=== PATIENT | female | born 1955 | race Two or more races ===

== ENCOUNTER 2024-09-17 18:24 | Inpatient (IN) | payer MEDICAID, MEDICARE, OTHER ==
[~2024-09-17] VITALS: Ht 154.9 cm; Wt 65.9 kg
[~2024-09-17 18:24] MED LIST: CLON0.1T PO; ESCI10TA PO; METO-289 PO; OLME5TAB22 PO; TERB250T92 PO
[2024-09-17] MEDS: cloNIDine HCL 0.1 MG TAB PO ONE (18:50)
[2024-09-17] MEDS: LORazepam 0.5 MG TAB PO ONE ×2 (18:51→20:36)
--- NOTE | 2024-09-17 18:59 | ED.PDOC ---
History of Present Illness HPI Comments 69 y/o F, with a Hx of cardiomyopathy, HLD, and HTN, presents with c/o HTN, headache, and nausea, today. Patient reports on noticing her blood pressure being elevated in addition to onset of remaining aforementioned symptoms since yesterday. Patient comments on being compliant with her HTN medication, metopr olol and olmesartan, and still having issue managing her blood pressure. She comments on "closing [her] eyes" improving her headache. Patient denies having any chest pain, shortness of breath, dizziness, vision or speech changes, fever, chills, or other associated symptoms or modifiers at this time. Chief Complaint: High Blood Pressure Time Seen by MD: 18:40 Reviewed Notes: Nurses Notes, Medications, Allergies Allergies: Coded Allergies: NO KNOWN ALLERGIES (Unverified , 09/17/24) Information Source: Patient Mode of Arrival: Ambulatory Severity: Moderate Timing: Days Duration: Since onset Prehospital treatment: None Past Medical History PAST MEDICAL HISTORY: High Lipids, HTN Past Medical History (Other): cardiomyopathy, carpal tunnel syndrome Surgical History: NURSERYPERSON History: Denies all NURSERYPERSON Hx Family History Family History: Unknown Social History Smoker: Non-Smoker Alcohol: Denies ETOH Use Drugs: Denies Drug Use Lives In: Home Constitutional: denies: chills, diaphoresis, fatigue, fever, malaise, sweats, weakness, others EENTM: denies: blurred vision, double vision, ear bleeding, ear discharge, ear drainage, ear pain, ear ringing, eye pain, eye redness, hearing loss, mouth pain, mouth swelling, nasal discharge, nose bleeding, nose congestion, nose pain, photophobia, tearing, throat pain, throat swelling, voice changes, others Cardiovascular: denies: chest pain, dizzy spells, diaphoresis, Dyspnea on exertion, edema, irregular heart beat, left arm pain, lightheadedness, palpitations, PND, syncope, others Gastrointestinal: reports: nausea; denies: abdomen distended, abdominal pain, blood streaked bowels, constipated, diarrhea, dysphagia, difficulty swallowing, hematemesis, melena, poor appetite, poor fluid intake, rectal bleeding, rectal pain, vomiting, others Genitourinary: denies: abnormal vagina bleeding, burning, dyspareunia, dysuria, flank pain, frequency, hematuria, incontinence, pain, , vagina discharge, urgency, others Neurological: reports: headache; denies: dizziness, fainting, left sided numbne ss, left sided weakness, numbness, paresthesia, pre-existing deficit, right sided numbness, right sided weakness, seizure, speech problems, tingling, tremors, weakness, others Musculoskeletal: denies: back pain, gout, joint pain, joint swelling, muscle pain, muscle stiffness, neck pain, others Integumetry: denies: bruises, change in color, change in hair/nails, dryness, laceration, lesions, lumps, rash, wounds, others Allergic/Immunocompromised: denies: Difficulty Healing, Frequent Infections, Hives, Itching, others Hematologic/Lymphatic: reports: others (HTN); denies: anemia, blood clots, easy bleeding, easy bruising, swollen glands Endocrine: denies: excessive hunger, excessive sweating, excessive thirst, excessive urination, flushing, intolerance to cold, intolerance to heat, unexplained weight gain, unexplained weight loss, others Physical Exam General Appearance: Moderate Distress, Normal HEENT: Normal ENT Inspection, Pharynx Normal, TMs Normal Neck: Full Range of Motion, Non-Tender, Normal, Normal Inspection Respiratory: Chest Non-Tender, Lungs Clear, No Accessory Muscle Use, No Respiratory Distress, Normal Breath Sounds Cardiovascular: No Edema, No JVD, No Murmur, No Gallop, Normal Peripheral Pulses, Regular Rate/Rhythm Breast Exam: Deferred Gastrointestinal: No Organomegaly, Non Tender, No Pulsatile Mass, Normal Bowel Sounds, Soft Genitalia: Deferred Pelvic: Deferred Rectal: Deferred Extremities: No calf tenderness, Normal capillary refill, Normal inspection, Normal range of motion, Non-tender, No pedal edema Musculoskeletal : Apperance: Normal Neurologic: Alert, manager quality systems II-XII nml as Tested, No Motor Deficits, Normal Affect, Normal Mood, No Sensory Deficits Cerebellar Function: Normal Reflexes: Normal Skin: Dry, Normal Color, Warm Lymphatic: No Adenopathy Was a procedure done? Was a procedure done?: No Differential Dx Considerations may include: HTN emergency, inappropriate medication dosage, tension headache, cluster migraines X-Ray, Labs, Meds, VS Vital Signs Date Time Temp Pulse Resp B/P (MAP) Pulse Ox O2 Delivery O2 Flow Rate FiO2 09/18/24 00:02 57 09/17/24 23:08 64 09/17/24 20:51 101.7 09/17/24 20:50 101.7 09/17/24 20:41 141/65 09/17/24 20:23 75 12 94 Room Air* 0 21 09/17/24 20:21 102.3 75 12 141/65 (90) 94 102.3 09/17/24 18:50 199/85 09/17/24 18:45 87 18 199/85 (123) 92 09/17/24 18:35 98.4 83 18 197/68 (111) 96 Lab Test 09/18/24 00:18 09/17/24 22:50 09/17/24 21:20 Range/Units Troponin I High Sensitivity Pending 196 *H 205 *H </=34 ng/L White Blood Count 5.6 4.4-10.8 10^3/uL Red Blood Count 4.62 4.0-5.20 10^6/uL Hemoglobin 13.5 12.2-16.2 g/dL Hematocrit 39.7 36.0-46.0 % Mean Corpuscular Volume 86.0 80.0-100.0 fL Mean Corpuscular Hemoglobin 29.2 28.0-32.0 pg Mean Corpuscular Hemoglobin Concent 33.9 32.0-36.0 g/dL Red Cell Distribution Width 13.9 11.8-14.3 % Platelet Count 192 140-450 10^3/uL Mean Platelet Volume 8.6 6.9-10.8 fL Neutrophils (%) (Auto) 83.9 H 37.0-80.0 % Lymphocytes (%) (Auto) 7.3 L 10.0-50.0 % Monocytes (%) (Auto) 7.7 0.0-12.0 % Eosinophils (%) (Auto) 0.8 0.0-7.0 % Basophils (%) (Auto) 0.3 0.0-2.0 % Neutrophils # (Auto) 4.7 1.6-8.6 10 ^3/uL Lymphocytes # (Auto) 0.4 0.4-5.4 10 ^3/uL Monocytes # (Auto) 0.4 0-1.3 10 ^3/uL Eosinophils # (Auto) 0 0-0.8 10 ^3/uL Basophils # (Auto) 0 0-0.2 10 ^3/uL Nucleated Red Blood Cells 0.1 % Prothrombin Time 11.6 9.3-11.8 sec Prothrombin Time INR 1.10 0.9-1.15 Activated Partial Thromboplast Time 28.9 24.5-34.5 SEC Sodium Level 136 136-145 mmol/L Potassium Level 4.0 3.5-5.1 mmol/L Chloride Level 103 98-107 mmol/L Carbon Dioxide Level 25 20-31 mmol/L Anion Gap 8 5-15 Blood Urea Nitrogen 10 9-23 mg/dL Creatinine 0.74 0.550-1.02 mg/dL Glomerular Filtration Rate Calc 89 >90 mL/min BUN/Creatinine Ratio 13.5 10.0-20.0 Serum Glucose 143 H 74-106 mg/dL Lactic Acid Level 1.3 0.4-2.0 mmol/L Calcium Level 9.4 8.7-10.4 mg/dL Total Bilirubin 0.7 0.2-1.0 mg/dL Aspartate Amino Transferase (AST) 12 L 13-40 U/L Alanine Aminotransferase (ALT) 13 7-40 U/L Alkaline Phosphatase 131 H 46-116 U/L Total Protein 6.6 5.7-8.2 g/dL Albumin 4.2 3.2-4.8 g/dL Current Medications Medications (Trade) Dose Ordered Sig/Abdi Route Start Time Stop Time Status Last Admin Clonidine HCl (Catapres Tablet) 0.2 mg ONCE ONCE PO 09/17/24 18:45 09/17/24 18:46 DC 09/17/24 18:50 Lorazepam (Ativan Tablet) 2 mg ONCE ONCE PO 09/17/24 18:45 09/17/24 18:57 DC 09/17/24 18:51 Acetaminophen (Tylenol Tablet) 1,000 mg ONCE ONCE PO 09/17/24 20:45 09/17/24 20:46 DC 09/17/24 20:51 Ibuprofen (Motrin Tablet) 800 mg ONCE ONCE PO 09/17/24 20:45 09/17/24 20:46 DC 09/17/24 20:50 Levofloxacin/ Dextrose 100 ml @ 100 mls/hr ONCE ONCE IV 09/17/24 21:15 09/17/24 22:14 DC 09/18/24 00:24 Sodium Chloride 1,450 ml @ 1,450 mls/hr ONCE ONCE IV 09/17/24 21:15 09/17/24 22:14 DC 09/18/24 00:[address] [address] Ph: [phone] DIAGNOSTIC IMAGING Diagnostic Imaging Report : [id number] Signed PATIENT: KIERRA KWOKAACCT: [id number] UNIT: [id number] : 1955 LOC: ER ROOM / BED: / AGE / SEX: 69 / F ADM STATUS: REG ER SERVICE 01 ORDERING PHYSICIAN: CLIFF OREILLY MD PROCEDURE(s): CXRP - CHEST PORTABLE REASON: htn ORDER NUMBER(s): [id number], ACCESSION NUMBER(s): [id number] CHEST RADIOGRAPH Indication: htn Technique: Single frontal view of the chest was obtained Comparison: None FINDINGS: Lines and Tubes: None Lungs: No focal consolidation. Pleura: No effusion. No pneumothorax. Cardiomediastinal contours: Cardiac size within normal limits. Bones: No acute osseous abnormality. IMPRESSION: 1. No acute cardiopulmonary disease. ATED BY: MYRNA ROUSE Jr., DO DICTATED DATE/TIME: 09/17/242202 SIGNED BY: MYRNA ROUSE Jr., SIGNED DATE/TIME: 09/17/242202 CC: The patient has spiked a fever while waiting in the lobby. We started a septic workup. She was given acetaminophen ibuprofen IV fluids and Levaquin. She was also given clonidine for high blood pressure and lorazepam for anxiety. EKG shows no signs of ischemia. First troponin is 205. Second troponin is 196. CBC is normal. CMP is normal. Clonidine was administered for hypotension. Morphine was administered for chest like pain. The patient will be admitted to the hospitalist for further evaluation and care. Time of 1ST Reevaluation: 19:10 Reevaluation 1ST: Unchanged Patient Education/Counseling: Diagnosis, Treatment Family Education/Counseling: No Family Present Departure 1 Departure Time of Disposition: 00:35 Impression: Primary Impression: Hypertension Qualified Codes: I10 - Essential (primary) hypertension Additional Impressions: Anxiety Fever of unknown origin Non-STEMI (non-ST elevated myocardial infarction) Viral syndrome Disposition: 09 ADMITTED INPATIENT Admit to: Tele Condition: Guarded Critical Care Note Critical Care Time?: Yes (35 min-critical care time only) Stability Stability form required: No Heart Score Heart Score: Heart Score Response (Comments) Value History N/A 0 EKG N/A 0 Age N/A 0 Risk Factors N/A 0 Troponin N/A 0 Total 0 I personally scribed for CLIFF OREILLY MD ([email or web address]) on 09/17/24 at 18:59. Electronically submitted by Altaf Ordaz ([email or web address]). CLIFF OREILLY MD Sep 17, 2024 18:59
[2024-09-17 20:23] VITALS: PULSE 75; RESP 12; O2SAT 94
[2024-09-17] MEDS: IBUPROFEN 800 MG TAB PO ONE (20:50)
[2024-09-17] MEDS: ACETAMINOPHEN 500 MG TAB PO ONE (20:51)
[2024-09-17 21:38] LABS: Basophils # (auto) 0 10 ^3/uL (0-0.2); Basophils % (auto) 0.3 % (0.0-2.0); Eosinophils # (auto) 0 10 ^3/uL (0-0.8); Eosinophils % (auto) 0.8 % (0.0-7.0); Hematocrit 39.7 % (36.0-46.0); Hemoglobin 13.5 g/dL (12.2-16.2); Lymphocytes # (auto) 0.4 10 ^3/uL (0.4-5.4); Lymphocytes % (auto) 7.3 % (10.0-50.0); Mean Corpuscular Hemoglobin 29.2 pg (28.0-32.0); Mean Corpuscular Hgb Conc. 33.9 g/dL (32.0-36.0); Monocytes # (auto) 0.4 10 ^3/uL (0-1.3); Monocytes % (auto) 7.7 % (0.0-12.0); Neutrophils # (auto) 4.7 10 ^3/uL (1.6-8.6); Neutrophils % (auto) 83.9 % (37.0-80.0); Nucleated Red Blood Cells % 0.1 %; Platelet Count (auto) 192 10^3/uL (140-450); Red Blood Cells 4.62 10^6/uL (4.0-5.20); Red Cell Distribution Width 13.9 % (11.8-14.3); White Blood Cell 5.6 10^3/uL (4.4-10.8)
[2024-09-17 21:55] LABS: Alanine Aminotransferase 13 U/L (7-40); Alkaline Phosphatase 131 U/L (46-116); Anion Gap 8 (5-15); Aspartate Aminotransferase 12 U/L (13-40); BUN/Creatinine Ratio 13.5 (10.0-20.0); Blood Urea Nitrogen 10 mg/dL (9-23); Calcium 9.4 mg/dL (8.7-10.4); Carbon Dioxide 25 mmol/L (20-31); Chloride 103 mmol/L (98-107); Glucose 143 mg/dL (74-106); Sodium 136 mmol/L (136-145)
[2024-09-17 21:56] LABS: Albumin 4.2 g/dL (3.2-4.8); Bilirubin, Total 0.7 mg/dL (0.2-1.0); INR 1.1 (0.9-1.15); Partial Thromboplastin Time 28.9 SEC (24.5-34.5); Prothrombin Time 11.6 sec (9.3-11.8); Total Protein 6.6 g/dL (5.7-8.2)
--- NOTE | 2024-09-17 22:06 | DVH ---
CHEST RADIOGRAPH Indication: htn Technique: Single frontal view of the chest was obtained Comparison: None FINDINGS: Lines and Tubes: None Lungs: No focal consolidation. Pleura: No effusion. No pneumothorax. Cardiomediastinal contours: Cardiac size within normal limits. Bones: No acute osseous abnormality. IMPRESSION: 1. No acute cardiopulmonary disease.
[2024-09-18] MEDS: SODIUM CHLORIDE 0.9% 1,450 ML IV ONE (00:24)
[2024-09-18] MEDS: levoFLOXacin 500MG 100 ML IV ONE (00:24)
[2024-09-18] MEDS ORDERED: NITROGLYCERIN 0.4 MG SL TAB SL PRN (01:15)
[2024-09-18] MEDS ORDERED: DOCUSATE SOD 100 MG CAP PO PRN (01:15)
[2024-09-18] MEDS ORDERED: MORPHINE SULFATE INJ 2 MG/ml SYRG IV PRN (01:15)
[2024-09-18 02:15] VITALS: PULSE 58; RESP 17; O2SAT 93
--- NOTE | 2024-09-18 02:28 | DVHHPRES ---
History of Present Illness Resident Creating Document: NAMITA BOLTON RESIDENT History of Present Illness Patient is 69 years old female with past medical history of hypertension, hyperlipidemia, cardiomyopathy, carpal tunnel syndrome came with a complaint of elevated blood pressure with a headache. As per patient patient checked her blood pressure last night and found elevated blood pressure 186/92. Patient also reported having headache around 10/10, pressure-like no relieved with the pain medication. Patient also endorsed some shortness of breath, feeling nausea, weakness like she has been fall, and I burning. On further discussion patient reported feeling chest pain early in the morning, 7/10, pressure-like, nonradiating, spontaneous relief and lasted for 1 minute. Initial lab workup revealed elevated troponin I 205> 196> 180, serum glucose 143, alkaline phosphatase 131. EKG revealed no acute ST elevation IN, T-wave inversion. CXR no acute cardiopulmonary disease noted. Home meds metoprolol, atorvastatin, olmesartan Past Medical History Patient is 69 years old female with past medical history of hypertension, hyperlipidemia, cardiomyopathy, carpal tunnel syndrome Past Surgical History , history surgery Past Social History Lives on, denies smoking, alcoholism or drug abuse Review of Systems Review of Systems Allergy- NKDA Patient was seen today at the bedside. Patient reports feeling tired Cardiovascular- deny acute chest pain or shortness of breath or cough or palpitation Respiratory- denies cough or short of breath or wheezing Gastrointestinal- denies any rectal bleeding, nausea or vomiting Musculoskeletal-denies acute joint swelling or tenderness or redness Neurological- denies acute dysarthria, dysphagia, change in vision Psychiatry- denies depression or SI or HI Skin- denies acute rash or purpura Allergies: Coded Allergies: NO KNOWN ALLERGIES (Unverified , 09/17/24) Medications Current Medications Medications Dose Ordered Sig/Abdi Route Start Time Stop Time Status Last Admin Dose Admin Ondansetron HCl 4 mg Q4HP PRN IV 09/18/24 01:15 Docusate Sodium 100 mg BIDPRN PRN PO 09/18/24 01:15 Acetaminophen 650 mg Q6HP PRN PO 09/18/24 01:15 Morphine Sulfate 2 mg Q4HPRN PRN IV 09/18/24 01:15 Nitroglycerin 0.4 mg Q5MINP PRN SL 09/18/24 01:15 Morphine Sulfate 2 mg Q30M PRN IV 09/18/24 01:15 Exam Vital Signs Vital Signs Date Time Temp Pulse Resp B/P (MAP) Pulse Ox O2 Delivery O2 Flow Rate FiO2 09/18/24 00:02 57 09/17/24 20:51 101.7 09/17/24 20:41 141/65 09/17/24 20:23 12 94 Room Air* 0 21 Exam General examination- awake, alert, oriented, conversive HEENT- PEERLA, no acute nasal discharge Cardiovascular- S1-S2 audible, rate and rhythm regular, no murmur Respiratory- CTAB, no wheeze or rhonchi Gastrointestinal-nontender, bowel sound+. Nondistended Musculoskeletal-no acute joint swelling or tenderness or redness# Lower extremity- no leg edema Neurological- cranial nerves intact, no acute dysarthria or dysphagia Psychiatry- denies depression or SI or HI Skin- no acute rash or purpura, Labs/Xrays Labs Test 09/18/24 00:18 09/17/24 21:20 Range/Units Troponin I High Sensitivity 180 *H </=34 ng/L White Blood Count 5.6 4.4-10.8 10^3/uL Red Blood Count 4.62 4.0-5.20 10^6/uL Hemoglobin 13.5 12.2-16.2 g/dL Hematocrit 39.7 36.0-46.0 % Mean Corpuscular Volume 86.0 80.0-100.0 fL Mean Corpuscular Hemoglobin 29.2 28.0-32.0 pg Mean Corpuscular Hemoglobin Concent 33.9 32.0-36.0 g/dL Red Cell Distribution Width 13.9 11.8-14.3 % Platelet Count 192 140-450 10^3/uL Mean Platelet Volume 8.6 6.9-10.8 fL Neutrophils (%) (Auto) 83.9 H 37.0-80.0 % Lymphocytes (%) (Auto) 7.3 L 10.0-50.0 % Monocytes (%) (Auto) 7.7 0.0-12.0 % Eosinophils (%) (Auto) 0.8 0.0-7.0 % Basophils (%) (Auto) 0.3 0.0-2.0 % Neutrophils # (Auto) 4.7 1.6-8.6 10 ^3/uL Lymphocytes # (Auto) 0.4 0.4-5.4 10 ^3/uL Monocytes # (Auto) 0.4 0-1.3 10 ^3/uL Eosinophils # (Auto) 0 0-0.8 10 ^3/uL Basophils # (Auto) 0 0-0.2 10 ^3/uL Nucleated Red Blood Cells 0.1 % Prothrombin Time 11.6 9.3-11.8 sec Prothrombin Time INR 1.10 0.9-1.15 Activated Partial Thromboplast Time 28.9 24.5-34.5 SEC Sodium Level 136 136-145 mmol/L Potassium Level 4.0 3.5-5.1 mmol/L Chloride Level 103 98-107 mmol/L Carbon Dioxide Level 25 20-31 mmol/L Anion Gap 8 5-15 Blood Urea Nitrogen 10 9-23 mg/dL Creatinine 0.74 0.550-1.02 mg/dL Glomerular Filtration Rate Calc 89 >90 mL/min BUN/Creatinine Ratio 13.5 10.0-20.0 Serum Glucose 143 H 74-106 mg/dL Lactic Acid Level 1.3 0.4-2.0 mmol/L Calcium Level 9.4 8.7-10.4 mg/dL Total Bilirubin 0.7 0.2-1.0 mg/dL Aspartate Amino Transferase (AST) 12 L 13-40 U/L Alanine Aminotransferase (ALT) 13 7-40 U/L Alkaline Phosphatase 131 H 46-116 U/L Total Protein 6.6 5.7-8.2 g/dL Albumin 4.2 3.2-4.8 g/dL Assessment/Plan Assessment/Plan # hypertensive urgency -patient has elevated blood pressure at home 186/92 -continue hydralazine 10 mg q.6h p.r.n. -pending echo 2D -nitroglycerin sublingual p.r.n. -monitor blood pressure p.r.n. # NSTEMI likely type2 hypertensive urgency Continue aspirin 81 mg p.o. daily # acute heart failure -BNP 454 -history of cardiomyopathy -continue Lasix as prescribed -pending echo 2D -consult cardiology # weakness/shortness of breaths/by burning likely due to hypertensive urgency -continue current management as prescribed # hyperlipidemia -continue atorvastatin 40 mg q.h.s. # cardiomyopathy -continue aspirin 81 mg daily -continue atorvastatin 40 mg q.h.s. -continue Lasix 20 mg IV b.i.d. -patient has sinus bradycardia -hold metoprolol for now due to sinus bradycardia -pending echo 2D # history of carpal tunnel syndrome -follow up patient Goals of care/advance care planning; FULL CODE; discussed with the patient >15 minutes PUD prophylaxis: Pantoprazole DVT prophylaxis: Lovenox PCP-Dr.Shelton Whyte Plan discussed with Dr. Tinajero, nursing staff, patient Total time spent on patient evaluation, chart review, assessment and plan, discussion discussion >30 minutes Plan discussed with: Patient Plan discussed with: Patient (RN), Other My Orders Orders - NAMITA BOLTON RESIDENT Procedure Category Date Status Time Admit ADMIT 09/18/24 Transmitted 01:09 Code Status CODE 09/18/24 Transmitted 01:09 Ondansetron Hcl PHA 09/18/24 In Process (Zofran) 01:15 Docusate Sodium PHA 09/18/24 In Process Capsule (Colace 01:15 Cardiac DIET 09/18/24 Transmitted Diet-2gna,Lofat,Lochol Breakfast Echo 2d Mode Cardiac US 09/18/24 Logged DOP 01:09 Acetaminophen Tablet PHA 09/18/24 In Process (Tylenol Tablet) 01:15 Morphine Sulfate PHA 09/18/24 In Process Injection 01:15 Nitroglycerin PHA 09/18/24 In Process Sublingual (Ntrostat 01:15 Morphine Sulfate PHA 09/18/24 In Process Injection 01:15 Oxygen By Nasal RT 09/18/24 Transmitted Cannula 01:09 Stat Ekg For Chest BANNER 09/18/24 In Process Pain 01:09 Notify Of Changes BANNER 09/18/24 In Process From Base 01:09 Chapter Relations Administrator For BANNER 09/18/24 In Process 24 Hours 01:09 Emergency Dysrhythmia BANNER 09/18/24 In Process Protocol 01:09 Rhythm Strips Once BANNER 09/18/24 In Process Every Shift 01:09 Drug Screen LAB 09/18/24 Logged 01:32 Complete Blood Count LAB 09/18/24 Logged 04:00 Comprehensive LAB 09/18/24 Logged Metabolic Panel 04:00 Magnesium LAB 09/18/24 Logged 04:00 Date of Service: Sep 18, 2024 Billing Provider: MANUEL TINAJERO MD Common Visit Codes: 32670-GJJXIPK INP/OBS CARE (HIGH) Secondary Visit Codes: 05462-[id number] CARE PLAN 30 MINUTES NAMITA BOLTON Sep 18, 2024 02:28 MANUEL TINAJERO MD Sep 18, 2024 08:54
[2024-09-18] MEDS ORDERED: cloNIDine HCL 0.1 MG TAB PO PRN (02:30)
[2024-09-18] MEDS ORDERED: hydrALAZINE HCL 20 MG/ML VL IV PRN (02:30)
[2024-09-18] MEDS: ATORVASTATIN 20 MG TAB PO ONE (04:00)
[2024-09-18] MEDS: ASPirin 81 mg TAB PO ONE (04:00)
[2024-09-18] MEDS: ENOXAPARIN SOD 40 MG/0.4 ML SYRINGE SC ONE (04:00)
[2024-09-18] MEDS: PANTOPRAZOLE 40 MG TAB PO ONE (04:01)
[2024-09-18] MEDS: ACETAMINOPHEN 325 MG TAB PO PRN (05:26)
[2024-09-18] MEDS: FUROSEMIDE 40 MG/4 ML VIAL IV ONE (05:30)
[2024-09-18] MEDS: IPRATROPIUM BROM 0.5 MG/2.5ML INH SOL NEB ONE (05:35)
[2024-09-18] MEDS: ALBUTEROL SULF 2.5 MG/0.5ML(0.5%) NEB SOLN NEB ONE (05:35)
[2024-09-18] MEDS: PANTOPRAZOLE 40 MG TAB PO SCH (06:00)
--- NOTE | 2024-09-18 06:21 | ECG ---
[facility] Test Date: 2024-09-17 Test Time: 23:08:21 Pat Name: CHERYL CRUZ Department: ED Room: [address] [place] [address] Gender: F Graduate Rn: SALBADOR : 1955 Requested By: CLIFF OREILLY Order Number: [id number] Reading MD: Glenn Black Measurements Intervals [place] Rate: 64 P: 46 WY: 156 QRS: 38 QRSD: 93 T: 191 QT: 419 QTc: 433 Interpretive Statements Sinus rhythm Probable left atrial enlargement LVH with secondary repolarization abnormality Electronically Signed On 09-18-2024 8:28:30 PST by Glenn Black Please click the below link to view image of tracing.
--- NOTE | 2024-09-18 06:21 | ECG ---
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
[2024-09-18 07:34] LABS: Basophils # (auto) 0 10 ^3/uL (0-0.2); Basophils % (auto) 0.5 % (0.0-2.0); Eosinophils # (auto) 0.1 10 ^3/uL (0-0.8); Eosinophils % (auto) 1.5 % (0.0-7.0); Hematocrit 38.7 % (36.0-46.0); Hemoglobin 13.1 g/dL (12.2-16.2); Lymphocytes # (auto) 0.9 10 ^3/uL (0.4-5.4); Lymphocytes % (auto) 24.8 % (10.0-50.0); Mean Corpuscular Hemoglobin 29.2 pg (28.0-32.0); Mean Corpuscular Hgb Conc. 33.7 g/dL (32.0-36.0); Mean Corpuscular Volume 86.6 fL (80.0-100.0); Monocytes # (auto) 0.3 10 ^3/uL (0-1.3); Monocytes % (auto) 7.8 % (0.0-12.0); Neutrophils # (auto) 2.4 10 ^3/uL (1.6-8.6); Neutrophils % (auto) 65.4 % (37.0-80.0); Nucleated Red Blood Cells % 0.1 %; Platelet Count (auto) 164 10^3/uL (140-450); Red Blood Cells 4.47 10^6/uL (4.0-5.20); Red Cell Distribution Width 14.2 % (11.8-14.3); White Blood Cell 3.7 10^3/uL (4.4-10.8)
[2024-09-18 07:43] LABS: Alanine Aminotransferase 11 U/L (7-40); Albumin 4.1 g/dL (3.2-4.8); Alkaline Phosphatase 118 U/L (46-116); Anion Gap 9 (5-15); Aspartate Aminotransferase 12 U/L (13-40); Bilirubin, Total 0.8 mg/dL (0.2-1.0); Blood Urea Nitrogen 10 mg/dL (9-23); Calcium 9.1 mg/dL (8.7-10.4); Carbon Dioxide 26 mmol/L (20-31); Chloride 104 mmol/L (98-107); Cholesterol 285 mg/dL (< 200); Glucose 106 mg/dL (74-106); HDL Cholesterol 51 mg/dL (40-59); LDL Cholesterol 202 mg/dL (< 100); Potassium 3.7 mmol/L (3.5-5.1); Sodium 139 mmol/L (136-145); Triglycerides 179 mg/dL (< 150)
[2024-09-18 07:44] LABS: Total Protein 6.5 g/dL (5.7-8.2)
[2024-09-18 08:06] VITALS: PULSE 69; RESP 18; O2SAT 97
[2024-09-18 08:52] LABS: Urine Bacteria None Seen /hpf (None Seen)
[2024-09-18 09:23] LABS: Amphetamine Screen, Urine Neg (NEGATIVE); Barbiturate Scree,Urine Neg (NEGATIVE); Benzodiazephine Screen, Urine Neg (NEGATIVE); Cocaine Screen, Urine Neg (NEGATIVE); Opiate Scree,Urine Neg (NEGATIVE); Urine Blood Negative /uL (Negative); Urine Clarity Clear (Clear); Urine Color Colorless (Yellow); Urine Protein, UAD Negative (Negative); Urine Specific Gravity 1.006 (1.001-1.035); Urine Urobilinogen Normal (Negative); Urine WBC 1 /hpf (0 - 5); Urine pH 5.5 (5.0-9.0)
[2024-09-18 09:24] LABS: Cannabinoid Screen, Urine Neg (NEGATIVE); Phencyclidine Screen, Urine Neg (NEGATIVE)
[2024-09-18] MEDS: ASPirin 81 mg TAB PO SCH (10:00)
[2024-09-18] MEDS ORDERED: ACETAMINOPHEN 325 MG TAB PO PRN (11:15)
--- NOTE | 2024-09-18 11:29 | DVHSR ---
APPROVED REPORT EXAM: Two-dimensional and M-mode echocardiogram with Doppler and color Doppler. Blood Pressure: 155/65 mmHg INDICATION Hypertensive urgency RISK FACTORS Height: 5'1", Weight: 138 DIMENSIONS LVDd4.4 (3.8-5.7cm)LA (2D)3.8 (1.9-4.0cm)Aortic Root2.7 (2.0-3.7cm) LVDs3.0 (2.5-4.0cm)LA (MM) (1.9-4.0cm)Aortic Cusp Exc1.4 (1.5-2.0cm) EF (%) 60.0 (55-70%)Rt. Atrium3.3 (1.9-4.0cm)Asc. Aorta cm IVSd1.8 (0.7-1.1cm)RV (D) (1.8-2.4cm) PWd1.0 (0.7-1.1cm) Mitral Valve MitralMitral Stenosis E wave1.12m/sMV Mean GR.3mmHg A wave1.19m/sMV Peak GR.6mmHg E/A ratio0.92D MVAcm2 DECEL [id number] 1/2 [id number] IVRTmsDop MVA1.87cm2 Aortic Valve Aortic ValveAortic Stenosis V11.65m/Jo Ann Mean GR.9mmHg V22.02m/Jo Ann Peak GR.16mmHg LVOT Diameter1.7 (1.8-2.4cm)Doppler AVA1.85cm2 Pulmonic Valve V21.42m/s Tricuspid Valve TR Velocity2.65m/s [id number] Other Information Technically limited study due to body habitus. Conclusion Normal left ventricular size and dimension. Normal left ventricular systolic function estimated ejec tion fraction 55%. There is a grade 1 diastolic dysfunction. Normal right ventricular size and dimension. Normal right ventricular systolic function. Slightly i ncreased right ventricular systolic [id number] mm of mercury. Severely dilated left atrium. Moderately dilated right atrium. There is severe posterior mitral annular calcification. There is mild mitral valve stenosis with a p eak gradient of six and mean gradient of 3 mm of mercury and valve area calculated at 1.8 cm2 by pres sure half-time. There is mild to moderate aortic valve sclerosis. Peak gradient of 16 and mean gradient of8 mm of me rcury. There is mild tricuspid valve regurgitation. The pulmonary valve is grossly normal. No pericardial effusion.
--- NOTE | 2024-09-18 11:51 | DVH ---
EXAM: CT HEAD WITHOUT CONTRAST HISTORY: persistent headache nausea and vomiting COMPARISON: None TECHNIQUE: Axial images of the head were obtained and reformatted in coronal and sagittal planes. All CT scans at this medical facility are performed using dose modulation techniques as appropriate t o a performed exam including the following: Automated exposure control was utilized; adjustment of th e MA and/or KV according to patient size; and use of iterative reconstruction technique. CT Dose: CTDI volume is 53.84 mGy. Dose-length product is 953.35 mGy*cm FINDINGS: There is no evidence of acute intracranial hemorrhage, mass, mass effect midline shift. There is no h ydrocephalus or extra-axial fluid collection. Stallworth-white matter differentiation is maintained.. The visualized paranasal sinuses and mastoid air cells are clear. There is a nonspecific 2.2 x 1.4 Hy poechoic nodular structure seen in the right nasal cavity. The calvarium is intact. IMPRESSION: 1. No acute intracranial process. 2. Nonspecific 2.2 by 1.4 cm hypoechoic nodular structure in the right nasal cavity. Direct visualiza tion is recommended. HS:Y
[2024-09-18] MEDS: KETOROLAC TROMETH 30 MG/ML 1ML VIAL IV ONE (14:50)
[2024-09-18] MEDS: LOSARTAN POTASSIUM 25 MG TAB PO ONE (14:50)
--- NOTE | 2024-09-18 14:50 | DVHINCON2 ---
Date Seen: Sep 18, 2024 Referring Physician MD [place] resident Reason for Consultation History of cardiomyopathy, elevated troponin History of Present Illness This is a 69-year-old female patient who presents to the emergency room with chief complaint of headache, epistaxis, and shortness of breath. The patient reports that blood pressure was reaching as high as systolic 180s at home. She came to the emergency room for further evaluation. Blood pressure upon emergency room arrival reached as high as 199/85. She also comes in with a fever reaching as high as 102.3 F. Initial twelve lead electrocardiogram reveals normal sinus rhythm with diffuse ST segment depression and left ventricular hypertrophy. Initial troponin level of 205ng/L with flat trend thereafter. Significant past medical history includes nonobstructive hypertrophic cardiomyopathy, hypertension, dyslipidemia, and carpal tunnel syndrome. The patient reports that she follows up with agricultural systems specialist Dr. Fields in [place]. Past Medical History Past medical history reviewed. No other significant than mentioned above. Past Surgical History Family History Family history reviewed. Social History Denies the use of tobacco, alcohol or illicit drugs. Allergies: Coded Allergies: NO KNOWN ALLERGIES (Unverified , 09/17/24) Home Meds Reported Medications Escitalopram Oxalate (Lexapro) 10 Mg Tab, 1 TAB PO DAILY for 30 Days, #30 09/18/24 Terbinafine Hcl (Terbinafine Hcl) 250 Mg Tab, 1 TAB PO DAILY for 30 Days, #30 09/18/24 Clonidine Hydrochloride (Clonidine Hcl) 0.1 Mg Tab, 1 TAB PO DAILY for 30 Days, #30 09/18/24 Olmesartan Medoxomil (Olmesartan Medoxomil) 5 Mg Tab, 1 TAB PO DAILY for 30 Days, #30 09/18/24 Metoprolol Succinate (Metoprolol Succinate Er) 50 Mg Tab, 1.5 TAB PO DAILY for 30 Days, #45 09/18/24 Home Meds Home medications reviewed. Current Medications Current Medications Medications (Trade) Dose Ordered Sig/Abdi Route PRN Reason Start Time Stop Time Status Last Admin Ondansetron HCl (Zofran) 4 mg Q4HP PRN IV NAUSEA / VOMITING 09/18/24 01:15 Docusate Sodium (Colace Capsule) 100 mg BIDPRN PRN PO FOR CONSTIPATION 09/18/24 01:15 Acetaminophen (Tylenol Tablet) 650 mg Q6HP PRN PO PAIN SCALE 1-3 OR TEMP>100.4 09/18/24 01:15 09/18/24 05:26 Morphine Sulfate 2 mg Q4HPRN PRN IV SEVERE PAIN (7-10 PAIN SCALE) 09/18/24 01:15 Nitroglycerin (Ntrostat Sublingual) 0.4 mg Q5MINP PRN SL FOR CHEST PAIN 09/18/24 01:15 Morphine Sulfate 2 mg Q30M PRN IV FOR CHEST PAIN 09/18/24 01:15 Hydralazine HCl (Apresoline Injection) 10 mg Q6HP PRN IV SBP>150 09/18/24 02:30 Clonidine HCl (Catapres Tablet) 0.1 mg Q6HP PRN PO SBP>160 09/18/24 02:30 09/18/24 06:52 DC Enoxaparin Sodium (Lovenox) 40 mg DAILY@2200 SC 09/18/24 22:00 Aspirin 81 mg DAILY PO 09/18/24 10:00 Pantoprazole Sodium (Protonix Tablet) 40 mg DAILY@0600 PO 09/18/24 06:00 Atorvastatin Calcium (Lipitor) 40 mg HS PO 09/18/24 22:00 Furosemide (Lasix Injection) 20 mg BIDD IV 09/18/24 18:00 Acetaminophen (Tylenol Tablet) 650 mg Q6HP PRN PO MODERATE PAIN (4-6 PAIN SCALE) 09/18/24 11:15 09/18/24 11:28 DC Review of Systems Constitutional: No symptom reported Ears, Nose, & Throat: Headache, epistaxis Eyes: No symptom reported Neurological: No symptoms reported Pulmonary/Respiratory: Shortness of breath Cardiovascular: No symptom reported Gastrointestinal: No symptom reported Genitourinary: No symptom reported Musculoskeletal: No symptom reported Skin: No symptom reported Psychiatric: No symptom reported Endocrine: No symptom reported Hematologic/Lymphatic: No symptom reported Vital Signs Vital Signs Date Time Temp Pulse Resp B/P (MAP) Pulse Ox O2 Delivery O2 Flow Rate FiO2 09/18/24 14:00 66 20 166/78 (107) 90 09/18/24 08:06 Room Air* 0 21 09/17/24 23:15 98.7 98.7 Physical Exam General Appearance: Cooperative. Well-developed. Well-nourished. No acute distress. Pulmonary/Respiratory: Clear, bilateral breaths sounds. Cardiovascular/Chest: Regular rate and rhythm. Peripheral Pulses: 2+ Radial (R). 2+ Radial (L). 2+ Pedal (R). 2+ Pedal (L) Abdominal Exam: Normal bowel sounds. Ankle Exam: Negative ankle edema Lower extremities: Negative lower extremity edema Neuro/Mental Status: A/OX4, coherent. Thoughts/Psych: Normal thought pattern. Appropriate mood and affect. Good judgment and insight. Appearance: No acute distress. Skin Exam: Normal inspection. Normal color. Warm and dry. Labs/Diagnostic Data Labs Test 09/18/24 08:19 09/18/24 07:07 09/17/24 21:20 Range/Units Urine Color Colorless Yellow Urine Clarity Clear Clear Urine pH 5.5 5.0-9.0 Urine Specific Vendor 1.006 1.001-1.035 Urine Protein Negative Negative Urine Ketones Negative Negative Urine Blood Negative Negative /uL Urine Nitrite Negative Negative Urine Bilirubin Negative Negative Urine Urobilinogen Normal Negative mg/dL Urine Leukocyte Esterase Negative Negative /uL Urine RBC 1 0 - 4 /hpf Urine WBC 1 0 - 5 /hpf Urine Squamous Epithelial Cells Few <5 /hpf Urine Bacteria None seen None Seen /hpf Urine Glucose Normal Normal mg/dL Urine Opiates Screen Neg NEGATIVE Urine Fentanyl Screen Neg NEGATIVE Urine Barbiturates Screen Neg NEGATIVE Urine Phencyclidine Screen Neg NEGATIVE Urine Amphetamines Screen Neg NEGATIVE Urine Benzodiazepines Screen Neg NEGATIVE Urine Cocaine Screen Neg NEGATIVE Urine Cannabinoids Screen Neg NEGATIVE White Blood Count 3.7 #L 4.4-10.8 10^3/uL Red Blood Count 4.47 4.0-5.20 10^6/uL Hemoglobin 13.1 12.2-16.2 g/dL Hematocrit 38.7 36.0-46.0 % Mean Corpuscular Volume 86.6 80.0-100.0 fL Mean Corpuscular Hemoglobin 29.2 28.0-32.0 pg Mean Corpuscular Hemoglobin Concent 33.7 32.0-36.0 g/dL Red Cell Distribution Width 14.2 11.8-14.3 % Platelet Count 164 140-450 10^3/uL Mean Platelet Volume 8.4 6.9-10.8 fL Neutrophils (%) (Auto) 65.4 37.0-80.0 % Lymphocytes (%) (Auto) 24.8 10.0-50.0 % Monocytes (%) (Auto) 7.8 0.0-12.0 % Eosinophils (%) (Auto) 1.5 0.0-7.0 % Basophils (%) (Auto) 0.5 0.0-2.0 % Neutrophils # (Auto) 2.4 1.6-8.6 10 ^3/uL Lymphocytes # (Auto) 0.9 0.4-5.4 10 ^3/uL Monocytes # (Auto) 0.3 0-1.3 10 ^3/uL Eosinophils # (Auto) 0.1 0-0.8 10 ^3/uL Basophils # (Auto) 0 0-0.2 10 ^3/uL Nucleated Red Blood Cells 0.1 % Sodium Level 139 136-145 mmol/L Potassium Level 3.7 3.5-5.1 mmol/L Chloride Level 104 98-107 mmol/L Carbon Dioxide Level 26 20-31 mmol/L Anion Gap 9 5-15 Blood Urea Nitrogen 10 9-23 mg/dL Creatinine 0.77 0.550-1.02 mg/dL Glomerular Filtration Rate Calc 84 >90 mL/min BUN/Creatinine Ratio 13.0 10.0-20.0 Serum Glucose 106 74-106 mg/dL Hemoglobin A1c 6.4 H <5.7 % A1C Calcium Level 9.1 8.7-10.4 mg/dL Magnesium Level 2.0 1.6-2.6 mg/dL Total Bilirubin 0.8 0.2-1.0 mg/dL Aspartate Amino Transferase (AST) 12 L 13-40 U/L Alanine Aminotransferase (ALT) 11 7-40 U/L Alkaline Phosphatase 118 H 46-116 U/L Troponin I High Sensitivity 187 *H </=34 ng/L B-Type Natriuretic Peptide 454.66 0-100 pg/mL Total Protein 6.5 5.7-8.2 g/dL Albumin 4.1 3.2-4.8 g/dL Triglycerides Level 179 H < 150 mg/dL Cholesterol Level 285 H < 200 mg/dL LDL Cholesterol 202 H < 100 mg/dL HDL Cholesterol 51 40-59 mg/dL Prothrombin Time 11.6 9.3-11.8 sec Prothrombin Time INR 1.10 0.9-1.15 Activated Partial Thromboplast Time 28.9 24.5-34.5 SEC Lactic Acid Level 1.3 0.4-2.0 mmol/L Assessment NSTEMI type II secondary to hypertensive urgency History of nonobstructive hypertrophic cardiomyopathy (HCM) Severe posterior mitral annular calcification Mild mitral valve stenosis Mild tricuspid valve regurgitation Dyslipidemia Pyrexia from unknown source Prediabetes Plan/Recommendation We will continue with the following plan/recommendations (Dr. Donohue): Transthoracic echocardiogram reveals EF 55% with with significant increase in interventricular septum reaching maximum diameter of 1.87cm. No evidence of left ventricular outflow obstruction (poor image quality). Case reviewed and discussed with . Elevated troponin level likely in the setting of hypertensive urgency.At this time, we will recommend aggressive blood pressure control. Given history of nonobstructive hypertrophic cardiomyopathy, we will recommend medical therapy with beta-donato. Transition to Coreg for better blood pressure control. Continue lipid-lowering agent. Given that the patient was found to have a severe posterior mitral annular calcification, we will recommend for the patient to have blood cultures drawn. In the setting of positive blood cultures, we will recommend for a transesophageal echocardiogram to rule out infective endocarditis Thank you for allowing us to care for this patient. Please call with any questions or concerns. Critical care time spent: 44 minutes This medical document was created using an electronic medical record system with voice recognition software and computerized dictation system. Although this document has been carefully reviewed, there might still be some phonetic and typographical errors. Occasional wrong-word or ``sound-alike substitutions may have occurred due to the inherent limitations of voice recognition software. These areas are purely typographical due to imperfections of the software programs and do not reflect any compromise in the patient's medical care. Pl ease read the chart carefully and recognize, using context, where these substitutions have occurred. Plan discussed with: Patient Date of Service: Sep 18, 2024 Billing Provider: PASCALE DONOHUE MD Cardiology Common Codes: [id number] INP/OBS CARE (High) Cardiology Consultation Codes: [id number] CONSULT <45MIN KWASI FARLEY Sep 18, 2024 14:50
[2024-09-18] MEDS: FUROSEMIDE 20 MG/2 ML VIAL IV SCH (17:48)
[2024-09-18 19:22] VITALS: BP 138/65; PULSE 63; RESP 18; TEMP 98.6; O2SAT 92
--- NOTE | 2024-09-18 19:56 | DVHPNRES ---
Progress Note Date Seen: Sep 18, 2024 Resident Creating Document: CARLOS VINES RESIDENT Medical Necessity Reason Pt with a Central, PICC or Fol: No Medical Necessity Reason Elevated blood pressure and severe headache Subjective Review of Systems This is a 69 years old female with past medical history of hypertension, HOCM, hyperlipidemia, cardiomyopathy, carpal tunnel syndrome who presented to the ED with complaints of elevated blood pressure and global headache. Headache is persistent for over 2 months and rated 10/10. She mentioned that about 6 weeks ago, she noticed recurrent epistaxis but patient did not seek medical advise. Yesterday (09/17/24), again had another headache when she measured her bp it was 186/96. She became very concerned and came to the ED for further management. According to the patient she has been on multiple anti-hypertensive medication, but nothings seems to control her blood pressure. Patient also endorsed some shortness of breath, feeling nausea, weakness like she has been fall, and I burning. On further discussion patient reported feeling chest pain early in the morning, 7/10, pressure-like, nonradiating, spontaneous relief and lasted for 1 minute. Initial lab workup revealed elevated troponin I 205> 196> 180, serum glucose 143, alkaline phosphatase 131. EKG revealed no acute ST elevation VA, T- wave inversion. CXR no acute cardiopulmonary disease noted. Past Medical History: hypertension, hyperlipidemia, cardiomyopathy, carpal tunnel syndrome Past Surgical History:, history surgery Past Social History: denies smoking, alcoholism or drug abuse Constitutional: Denies fever no chills, but feeling of malaise HEENT: headache general persistent, But noear pain, ear discharges, conjunctivitis, nasal discharge throat pain Cardiovascular: Denies chest pain, palpitation, orthopnea, PND, or pedal edema Respiratory: Denies shortness of breath, cough cough, sputum production, hemoptysis, GI: Denies abdominal pain, nausea, vomiting, diarrhea, hematemesis, hematochezia, : Denies frequency, urgency, hematuria, Endocrine: Denies unintentional weight gain or weight loss, feeling of hot flashes, Jozef: Denies easy bruising, bleeding disorders; hsitory of epistaxis Musculoskeletal: Denies joint pains, muscle aches Psych: No evidence of depression, adal, suicidal ideation Review of Systems: CVS:Normal, RESPIRATORY:Normal, GI:Normal, :Normal, MSK:Normal, NEURO:Normal Objective vital signs Vital Sign Date Time Temp Pulse Resp B/P (MAP) Pulse Ox O2 Delivery O2 Flow Rate FiO2 09/18/24 18:03 62 17 149/67 (94) 95 09/18/24 16:00 98.2 98.2 09/18/24 08:06 Room Air* 0 21 Total Intake and Output 09/17/24 09/17/24 09/18/24 15:00 23:00 07:00 Intake Total 1550 ml Balance 1550 ml medications Current Medications Medications Dose Ordered Sig/Abdi Route Start Time Stop Time Status Last Admin Dose Admin Ondansetron HCl 4 mg Q4HP PRN IV 09/18/24 01:15 Docusate Sodium 100 mg BIDPRN PRN PO 09/18/24 01:15 Acetaminophen 650 mg Q6HP PRN PO 09/18/24 01:15 09/18/24 17:48 650 MG Morphine Sulfate 2 mg Q4HPRN PRN IV 09/18/24 01:15 Nitroglycerin 0.4 mg Q5MINP PRN SL 09/18/24 01:15 Morphine Sulfate 2 mg Q30M PRN IV 09/18/24 01:15 Hydralazine HCl 10 mg Q6HP PRN IV 09/18/24 02:30 Enoxaparin Sodium 40 mg DAILY@2200 SC 09/18/24 22:00 Pantoprazole Sodium 40 mg DAILY@0600 PO 09/18/24 06:00 Atorvastatin Calcium 40 mg HS PO 09/18/24 22:00 Furosemide 20 mg BIDD IV 09/18/24 18:00 09/18/24 17:48 20 MG Carvedilol 6.25 mg Q12HR PO 09/18/24 22:00 Examination General examination- Mild distress, elavated bp HEENT: Severe headache, mild redness on the eye. NO acute nasal discharge Chest: S1-S2 audible, rate and rhythm regular, no murmur Lung: CTAB, no wheeze or rhonchi Abdomen: Nondistend, BS+, nontenderness, no organomegaly Musculoskeletal: no acute joint swelling or tenderness Lower extremity: no leg edema Neurological: cranial nerves intact, no acute dysarthria or dysphagia, No neurological abnormalities Psychiatry-- Normal mood and affect Skin- no acute rash or purpura laboratory and microbiology Laboratory Tests 09/18/24 07:07 Test 09/18/24 07:07 Range/Units Serum Glucose 106 74-106 mg/dL Problem List/Assessment/Plan Problem List/Assessment/Plan Hypertensive urgency --> Losartan 25mg --> monitor BP over night. if not improvement, it add Nifedipine --> Hydralazine 10mg prn if SBP is >170 NSTEMI type II likely sencondary to elevated hypertensive --> troponin: 205--> 180--> 187 --> Cardiology consult Persisntent Headache -->CT head: No acute intracranial process, Nonspecific 2.2 by 1.4 cm hypoechoic nodular structure in the right nasal cavity. Direct visualization is recommended. --> Tylenol: no improvement --> Toradol: 15 mg --> Continue to monitor Prediabete --> Hgb A1c: 6.4 --> Encourage lifestyle modification Hypertrophic obstructive cardiomyopathy --> Monitor Care discussed for more than 30 minute Case and plan discussed with Dr. Gates Plan discussed with: Patient My Orders My Orders Orders - CARLOS VINES Procedure Category Date Status Time Head Without Contrast CT 09/18/24 Resulted 11:12 Date of Service: Sep 18, 2024 Billing Provider: JENNYFER MEJIA MD Common Visit Codes: [id number] INP/OBS CARE(HIGH) CARLOS VINES Sep 18, 2024 19:56 JENNYFER MEJIA MD Sep 24, 2024 00:14
[2024-09-18 20:00] VITALS: PULSE 62; RESP 18; O2SAT 98
[2024-09-18] MEDS: MORPHINE SULFATE INJ 2 MG/ml SYRG IV PRN (20:24)
[2024-09-18 21:00] VITALS: BP 144/70; PULSE 64; RESP 19; TEMP 98.4; O2SAT 92
[2024-09-18 22:29] VITALS: BP 138/65; PULSE 63; RESP 18; TEMP 98.6; O2SAT 92
[2024-09-18] MEDS ORDERED: ATOR-47 PO (22:59)
[2024-09-18] MEDS: ATORVASTATIN 20 MG TAB PO SCH (23:14)
[2024-09-18] MEDS: ENOXAPARIN SOD 40 MG/0.4 ML SYRINGE SC SCH (23:15)
[2024-09-18] MEDS: CARVEDILOL 3.125 MG TAB PO SCH (23:15)
[2024-09-19] VITALS (13 sets, daily range): BP systolic 113–164; BP diastolic 58–82; PULSE 63–80; RESP 17–20; TEMP 98–101.4; O2SAT 91–98
[2024-09-19] MEDS: ONDANSETRON HCL 4 MG/2 ML VIAL IV PRN (06:52)
[2024-09-19 07:34] LABS: Alanine Aminotransferase 17 U/L (7-40); Albumin 4.2 g/dL (3.2-4.8); Alkaline Phosphatase 110 U/L (46-116); Anion Gap 10 (5-15); Aspartate Aminotransferase 30 U/L (13-40); BUN/Creatinine Ratio 14.5 (10.0-20.0); Bilirubin, Total 0.6 mg/dL (0.2-1.0); Blood Urea Nitrogen 11 mg/dL (9-23); Carbon Dioxide 27 mmol/L (20-31); Chloride 100 mmol/L (98-107); Glucose 115 mg/dL (74-106); Potassium 3.4 mmol/L (3.5-5.1); Sodium 137 mmol/L (136-145); Total Protein 6.5 g/dL (5.7-8.2)
[2024-09-19 07:38] LABS: Free T3 2.4 pg/mL (2.3-4.2); Free T4 (Free Thyroxine) 1.26 ng/dL (0.89-1.76)
[2024-09-19 07:39] LABS: Basophils # (auto) 0 10 ^3/uL (0-0.2); Basophils % (auto) 0.4 % (0.0-2.0); Eosinophils # (auto) 0 10 ^3/uL (0-0.8); Eosinophils % (auto) 0.5 % (0.0-7.0); Hemoglobin 13.2 g/dL (12.2-16.2); Lymphocytes % (auto) 31.6 % (10.0-50.0); Mean Corpuscular Hemoglobin 29.1 pg (28.0-32.0); Mean Corpuscular Hgb Conc. 33.8 g/dL (32.0-36.0); Monocytes # (auto) 0.5 10 ^3/uL (0-1.3); Neutrophils # (auto) 1.7 10 ^3/uL (1.6-8.6); Neutrophils % (auto) 52.5 % (37.0-80.0); Nucleated Red Blood Cells % 0.4 %; Platelet Count (auto) 167 10^3/uL (140-450); Red Blood Cells 4.53 10^6/uL (4.0-5.20); Red Cell Distribution Width 14.1 % (11.8-14.3); White Blood Cell 3.3 10^3/uL (4.4-10.8)
--- NOTE | 2024-09-19 09:57 | DVHPN2 ---
Consult Progress Note Date Seen: Sep 19, 2024 Subjective Review of Systems: CVS:Normal, RESPIRATORY:Normal, NEURO:Normal Other Systems: Denies any further symptoms Objective vital signs Vital Sign Date Time Temp Pulse Resp B/P (MAP) Pulse Ox O2 Delivery O2 Flow Rate FiO2 09/19/24 08:00 63 18 94 Nasal Cannula* 2 28 09/19/24 07:14 98.6 150/82 (104) 98.6 Total Intake and Output 09/18/24 09/18/24 09/19/24 15:00 23:00 07:00 Intake Total 480 ml Output Total 800 ml Balance -800 ml 480 ml medications Current Medications Medications Dose Ordered Sig/Abdi Route Start Time Stop Time Status Last Admin Dose Admin Ondansetron HCl 4 mg Q4HP PRN IV 09/18/24 01:15 09/19/24 06:52 4 MG Docusate Sodium 100 mg BIDPRN PRN PO 09/18/24 01:15 Acetaminophen 650 mg Q6HP PRN PO 09/18/24 01:15 09/18/24 17:48 650 MG Morphine Sulfate 2 mg Q4HPRN PRN IV 09/18/24 01:15 09/18/24 20:24 2 MG Nitroglycerin 0.4 mg Q5MINP PRN SL 09/18/24 01:15 Morphine Sulfate 2 mg Q30M PRN IV 09/18/24 01:15 Enoxaparin Sodium 40 mg DAILY@2200 SC 09/18/24 22:00 09/18/24 23:15 40 MG Pantoprazole Sodium 40 mg DAILY@0600 PO 09/18/24 06:00 09/19/24 06:36 40 MG Atorvastatin Calcium 40 mg HS PO 09/18/24 22:00 09/18/24 23:14 40 MG Furosemide 20 mg BIDD IV 09/18/24 18:00 09/18/24 17:48 20 MG Hydralazine HCl 10 mg Q6HP PRN IV 09/18/24 19:30 Losartan Potassium 50 mg DAILY PO 09/19/24 10:00 Carvedilol 12.5 mg Q12HR PO 09/19/24 10:00 Examination: LUNGS:Normal, CVS:Normal, NEURO:Normal laboratory and microbiology Laboratory Tests 09/19/24 04:55 Test 09/19/24 04:55 Range/Units Serum Glucose 115 H 74-106 mg/dL Problem List/Assessment/Plan Problem List/Assessment/Plan NSTEMI type II secondary to hypertensive urgency Pyrexia secondary to hypertension History of nonobstructive hypertrophic cardiomyopathy (HCM) Severe posterior mitral annular calcification Mild mitral valve stenosis Mild tricuspid valve regurgitation Dyslipidemia Prediabetes Plan/Recommendation (Dr. Donohue) Transthoracic echocardiogram reveals EF 55% with with significant increase in interventricular septum reaching maximum diameter of 1.87cm. No evidence of left ventricular outflow obstruction (poor image quality). Elevated troponin level likely in the setting of hypertensive urgency. Continue aggressive blood pressure control with ARB and Coreg, uptitrate as necessary. Continue lipid- lowering agent. The patient with a severe posterior mitral annular calcification underwent blood cultures with preliminary results negative. No need for a transesophageal echocardiogram at this time. Counseled on low Na diet and BP log to take to her next appointment with primary process engineering technician on 10/2024. There is no further cardiac work-up indicated at this time. Kindly call with any questions or concerns. Thank you for allowing us to care for this patient. This medical document was created using an electronic medical record system with voice recognition software and computerized dictation system. Although this document has been carefully reviewed, there might still be some phonetic and typographical errors. Occasional wrong-word or ``sound-alike substitutions may have occurred due to the inherent limitations of voice recognition software. These areas are purely typographical due to imperfections of the software programs and do not reflect any compromise in the patient's medical care. Please read the chart carefully and recognize, using context, where these substitutions have occurred. Plan discussed with: Patient, Other Date of Service: Sep 19, 2024 Billing Provider: PASCALE DONOHUE MD Cardiology Common Codes: [id number] INP/OBS CARE(Mod) KINZA GARCIA [facility] Sep 19, 2024 09:57
[2024-09-19] MEDS: POTASSIUM CHL 20 Meq TABLET PO ONE ×2 (10:00→10:14)
[2024-09-19] MEDS: CARVEDILOL 12.5 MG TAB PO SCH (10:14)
[2024-09-19] MEDS: LOSARTAN POTASSIUM 50 MG TAB PO SCH (10:15)
[2024-09-19 11:10] LABS: Urine Bacteria None Seen /hpf (None Seen)
--- NOTE | 2024-09-19 11:28 | DVHPNRES ---
Progress Note Date Seen: Sep 19, 2024 Resident Creating Document: CARLOS VINES RESIDENT Has the PT tested + for MRSA If YES, has PT been informed?: No Medical Necessity Reason Pt with a Central, PICC or Fol: No Subjective Review of Systems This is a 69 years old female with past medical history of hypertension, HCM, hyperlipidemia, cardiomyopathy, carpal tunnel syndrome who presented to the ED with complaints of elevated blood pressure and global headache. Patient seen and examined today. She has no new complaints. The headache in better, however, her blood pressure is still elevated, bp:164/73. She was seen by cardiology yesterday. Echo revealed "significant increase in the interventricular septum reaching maximum diameter of 1.8 cm. No evidence of left ventricular outflow obstruction was clear however the images provided were limited to rule out dynamic left ventricular outflow tract fraction. Normal left ventricular systolic function estimated ejection fraction 55%". patient was started on Carvediol 6.25mg. Constitutional: Denies fever no chills, but feeling of malaise HEENT: headache improved, But noear pain, ear discharges, conjunctivitis, nasal discharge throat pain Cardiovascular: Denies chest pain, palpitation, orthopnea, PND, or pedal edema Respiratory: Denies shortness of breath, cough cough, sputum production, hemoptysis, GI: Denies abdominal pain, nausea, vomiting, diarrhea, hematemesis, hematochezia, : Denies frequency, urgency, hematuria, Endocrine: Denies unintentional weight gain or weight loss, feeling of hot flashes, Jozef: Denies easy bruising, bleeding disorders; hsitory of epistaxis Musculoskeletal: Denies joint pains, muscle aches Psych: No evidence of depression, adal, suicidal ideation Objective vital signs Vital Sign Date Time Temp Pulse Resp B/P (MAP) Pulse Ox O2 Delivery O2 Flow Rate FiO2 09/19/24 10:15 139/74 09/19/24 10:14 67 09/19/24 09:00 100.5 18 96 100.5 09/19/24 08:00 Nasal Cannula* 2 28 Total Intake and Output 09/18/24 09/18/24 09/19/24 15:00 23:00 07:00 Intake Total 480 ml Output Total 800 ml Balance -800 ml 480 ml medications Current Medications Medications Dose Ordered Sig/Abdi Route Start Time Stop Time Status Last Admin Dose Admin Ondansetron HCl 4 mg Q4HP PRN IV 09/18/24 01:15 09/19/24 06:52 4 MG Docusate Sodium 100 mg BIDPRN PRN PO 09/18/24 01:15 Acetaminophen 650 mg Q6HP PRN PO 09/18/24 01:15 09/18/24 17:48 650 MG Morphine Sulfate 2 mg Q4HPRN PRN IV 09/18/24 01:15 09/18/24 20:24 2 MG Nitroglycerin 0.4 mg Q5MINP PRN SL 09/18/24 01:15 Morphine Sulfate 2 mg Q30M PRN IV 09/18/24 01:15 Enoxaparin Sodium 40 mg DAILY@2200 SC 09/18/24 22:00 09/18/24 23:15 40 MG Pantoprazole Sodium 40 mg DAILY@0600 PO 09/18/24 06:00 09/19/24 06:36 40 MG Atorvastatin Calcium 40 mg HS PO 09/18/24 22:00 09/18/24 23:14 40 MG Hydralazine HCl 10 mg Q6HP PRN IV 09/18/24 19:30 Losartan Potassium 50 mg DAILY PO 09/19/24 10:00 09/19/24 10:15 50 MG Carvedilol 12.5 mg Q12HR PO 09/19/24 10:00 09/19/24 10:14 12.5 MG Ceftriaxone Sodium 50 ml @ 100 mls/hr DAILY@09 IV 09/20/24 09:00 Sodium Chloride 1,000 ml @ 75 mls/hr [id number] IV 09/19/24 10:00 Azithromycin 250 ml @ 125 mls/hr DAILY IV 09/20/24 10:00 UNV Examination General examination- Mild distress, elavated bp HEENT: headache-improved, mild redness on the eye. NO acute nasal discharge Chest: S1-S2 audible, rate and rhythm regular, no murmur Lung: CTAB, no wheeze or rhonchi Abdomen: Nondistend, BS+, nontenderness, no organomegaly Musculoskeletal: no acute joint swelling or tenderness Lower extremity: no leg edema Neurological: cranial nerves intact, no acute dysarthria or dysphagia, No neurological abnormalities Psychiatry-- Normal mood and affect Skin- no acute rash or purpura laboratory and microbiology Laboratory Tests 09/19/24 04:55 Test 09/19/24 04:55 Range/Units Serum Glucose 115 H 74-106 mg/dL Microbiology Date/Time Source Procedure Growth Status 09/17/24 21:11 Blood Blood Culture - Preliminary NO GROWTH AFTER 24 HOURS OF INCUBATION. Resulted Problem List/Assessment/Plan Problem List/Assessment/Plan Hypertensive urgency --> Losartan 50 mg --> Carvediol: 12.5mg daily --> monitor BP over night. if no improvement, will add Nifedipine --> Hydralazine 10mg prn if SBP is >170 NSTEMI type II likely sencondary to elevated hypertensive --> troponin: 205--> 180--> 187 --> Cardiology on board Atypical pneumonia --> Fever:temp: 100.5, 100 --> No evidence of infection --> Blood culture negative Headache-->. improved -->CT head: No acute intracranial process, Nonspecific 2.2 by 1.4 cm hypoechoic nodular structure in the right nasal cavity. Direct visualization is recommended. --> Tylenol: if no improvement --> Ibuprofen ( Consider this today) --> Toradol: 15 mg once. --> Continue to monitor Prediabete --> Hgb A1c: 6.4 --> Encourage lifestyle modification Hypertrophic cardiomyopathy --> Monitor Care discussed for more than 30 minute Case and plan discussed with Dr. Gates Plan discussed with: Patient My Orders My Orders Orders - CARLOS VINES Procedure Category Date Status Time Hydralazine Injection PHA 09/18/24 In Process (Apresoline Inject 19:30 Azithromycin 500mg/ PHA 09/20/24 Logged 250ml (Zithromax 50 10:00 Azithromycin 500mg/ PHA 09/19/24 Logged 250ml (Zithromax 50 11:30 Date of Service: Sep 19, 2024 Billing Provider: JENNYFER MEJIA MD Common Visit Codes: [id number] INP/OBS CARE(HIGH) CARLOS VINES Sep 19, 2024 11:28 JENNYFER MEJIA MD Sep 24, 2024 00:08
[2024-09-19 11:29] LABS: Urine Blood Negative /uL (Negative); Urine Clarity Clear (Clear); Urine Color Light-Yellow (Yellow); Urine Protein, UAD TRACE (Negative); Urine Specific Gravity 1.025 (1.001-1.035); Urine Urobilinogen Normal (Negative); Urine WBC 2 /hpf (0 - 5)
[2024-09-19] MEDS: cefTRIAXone 1GM/50ML D5W 50 ML IV ONE (11:33)
[2024-09-19] MEDS: SODIUM CHLORIDE 0.9% 1,000 ML IV SCH (11:33)
[2024-09-19 12:45] LABS: COVID19 ANTIGEN SOFIA FIA NEGATIVE (NEGATIVE); Rapid Influenza A Negative (Negative); Rapid Influenza B Negative (Negative)
[2024-09-19] MEDS: AZITHROMYCIN 500MG/ 250ML 250 ML IV ONE (14:15)
[2024-09-19] MEDS: hydrALAZINE HCL 20 MG/ML VL IV PRN (16:18)
--- NOTE | 2024-09-19 18:15 | DVH ---
EXAMINATION: PA and lateral chest radiographs CLINICAL HISTORY: sob COMPARISON: None FINDINGS: Lead wires overlie the thorax. Streaky opacities in the left lower lung field. Right lung is relatively clear. Aortic calcifications . The cardiomediastinal silhouette otherwise appears within normal limits given technique. No definit e pleural effusion or pneumothorax. IMPRESSION: Atelectasis/scarring versus developing infiltrates in the left lower lung field. Please correlate for infection.
[2024-09-20] VITALS (18 sets, daily range): BP systolic 127–165; BP diastolic 45–89; PULSE 60–102; RESP 17–19; TEMP 97.4–98.9; O2SAT 92–100
[2024-09-20] MEDS: ALBUTEROL SULF 2.5 MG/0.5ML(0.5%) NEB SOLN NEB PRN (00:22)
[2024-09-20] MEDS: IPRATROPIUM BROM 0.5 MG/2.5ML INH SOL NEB PRN (00:22)
[2024-09-20 07:10] LABS: Basophils # (auto) 0 10 ^3/uL (0-0.2); Basophils % (auto) 0.3 % (0.0-2.0); Eosinophils # (auto) 0 10 ^3/uL (0-0.8); Eosinophils % (auto) 0.8 % (0.0-7.0); Hematocrit 37.8 % (36.0-46.0); Hemoglobin 12.7 g/dL (12.2-16.2); Lymphocytes # (auto) 1.4 10 ^3/uL (0.4-5.4); Lymphocytes % (auto) 47.3 % (10.0-50.0); Mean Corpuscular Hgb Conc. 33.7 g/dL (32.0-36.0); Mean Corpuscular Volume 85.9 fL (80.0-100.0); Monocytes # (auto) 0.5 10 ^3/uL (0-1.3); Monocytes % (auto) 17.6 % (0.0-12.0); Nucleated Red Blood Cells % 0.3 %; Platelet Count (auto) 159 10^3/uL (140-450); Red Cell Distribution Width 13.8 % (11.8-14.3)
[2024-09-20 07:20] LABS: Anion Gap 9 (5-15); Carbon Dioxide 26 mmol/L (20-31); Chloride 103 mmol/L (98-107); Potassium 3.6 mmol/L (3.5-5.1); Sodium 138 mmol/L (136-145)
[2024-09-20 07:26] LABS: BUN/Creatinine Ratio 9.7 (10.0-20.0); Glucose 106 mg/dL (74-106)
[2024-09-20 07:29] LABS: Blood Urea Nitrogen 7 mg/dL (9-23)
[2024-09-20] MEDS: cefTRIAXone 1GM/50ML D5W 50 ML IV SCH (09:49)
[2024-09-20] MEDS: AZITHROMYCIN 500MG/ 250ML 250 ML IV SCH (09:49)
[2024-09-20] MEDS: methylPREDNISolone SOD SUCC 40 MG/ML VL IV ONE (13:30)
[2024-09-20] MEDS: IPRATROPIUM BROM 0.5 MG/2.5ML INH SOL NEB SCH (14:56)
[2024-09-20] MEDS: ALBUTEROL SULF 2.5 MG/0.5ML(0.5%) NEB SOLN NEB SCH (14:56)
[2024-09-20] MEDS: LOSARTAN POTASSIUM 50 MG TAB PO ONE (17:45)
--- NOTE | 2024-09-20 19:54 | DVHPNRES ---
Progress Note Date Seen: Sep 20, 2024 Resident Creating Document: CARLOS VINES RESIDENT Has the PT tested + for MRSA If YES, has PT been informed?: No Medical Necessity Reason Pt with a Central, PICC or Fol: No Medical Necessity Reason New wheezing and congestion X-ray: atelectasis vs new infiltration Subjective Review of Systems This 69 years old female with past medical history of hypertension, HCM, hyperlipidemia, cardiomyopathy, carpal tunnel syndrome who presented to the ED with complaints of elevated blood pressure and global headache. She is currently on Carvediol 12.5mg BID and Losartan 50mg. Blood pressure is getting better. Headache is improved and blood pressure is getting better. However, today, on examination, patient is wheezing with her increased temperature. D-dimer is negative. Constitutional: Denies fever no chills, but feeling of malaise HEENT: headache improved, But noear pain, ear discharges, conjunctivitis, nasal discharge throat pain Cardiovascular: Denies chest pain, palpitation, orthopnea, PND, or pedal edema Respiratory: MILD shortness of breath, drug cough, sputum production, hemoptysis, GI: Denies abdominal pain, nausea, vomiting, diarrhea, hematemesis, hematochezia, : Denies frequency, urgency, hematuria, Endocrine: Denies unintentional weight gain or weight loss, feeling of hot flashes, Jozef: Denies easy bruising, bleeding disorders; history of epistaxis Musculoskeletal: Denies joint pains, muscle aches Psych: No evidence of depression, adal, suicidal ideation Objective vital signs Vital Sign Date Time Temp Pulse Resp B/P (MAP) Pulse Ox O2 Delivery O2 Flow Rate FiO2 09/20/24 19:18 86 18 99 09/20/24 19:11 Room Air* 0 21 09/20/24 18:51 165/89 (114) 09/20/24 16:42 98.0 98.0 Total Intake and Output 09/19/24 09/19/24 09/20/24 15:00 23:00 07:00 Intake Total 50 ml 1300 ml 440 ml Balance 50 ml 1300 ml 440 ml medications Current Medications Medications Dose Ordered Sig/Abdi Route Start Time Stop Time Status Last Admin Dose Admin Ondansetron HCl 4 mg Q4HP PRN IV 09/18/24 01:15 09/20/24 12:32 4 MG Docusate Sodium 100 mg BIDPRN PRN PO 09/18/24 01:15 Acetaminophen 650 mg Q6HP PRN PO 09/18/24 01:15 09/20/24 08:41 650 MG Morphine Sulfate 2 mg Q4HPRN PRN IV 09/18/24 01:15 09/18/24 20:24 2 MG Nitroglycerin 0.4 mg Q5MINP PRN SL 09/18/24 01:15 Morphine Sulfate 2 mg Q30M PRN IV 09/18/24 01:15 Enoxaparin Sodium 40 mg DAILY@2200 SC 09/18/24 22:00 09/18/24 23:15 40 MG Pantoprazole Sodium 40 mg DAILY@0600 PO 09/18/24 06:00 09/19/24 06:36 40 MG Atorvastatin Calcium 40 mg HS PO 09/18/24 22:00 09/19/24 22:05 40 MG Hydralazine HCl 10 mg Q6HP PRN IV 09/18/24 19:30 09/19/24 16:18 10 MG Carvedilol 12.5 mg Q12HR PO 09/19/24 10:00 09/20/24 09:50 12.5 MG Ceftriaxone Sodium 50 ml @ 100 mls/hr DAILY@09 IV 09/20/24 09:00 09/20/24 09:49 100 MLS/HR Azithromycin 250 ml @ 125 mls/hr DAILY IV 09/20/24 10:00 09/20/24 09:49 125 MLS/HR Albuterol 2.5 mg Q4HWA [facility] 09/20/24 14:00 09/20/24 19:14 2.5 MG Ipratropium [place] 0.5 mg Q4HWA [facility] 09/20/24 14:00 09/20/24 19:15 0.5 MG Methylprednisolone Sodium Succinate 40 mg BID IV 09/20/24 22:00 Losartan Potassium 50 mg DAILY PO 09/21/24 10:00 Examination General examination- Mild distress, elavated bp HEENT: headache-improved, mild redness on the eye. NO acute nasal discharge Chest: S1-S2 audible, rate and rhythm regular, no murmur Lung: wheeze bilateral ( NEW) Abdomen: Nondistend, BS+, nontenderness, no organomegaly Musculoskeletal: no acute joint swelling or tenderness Lower extremity: No leg edema Neurological: cranial nerves intact, no acute dysarthria or dysphagia, No neurological abnormalities Psychiatry-- Normal mood and affect Skin- no acute rash or purpura laboratory and microbiology Laboratory Tests 09/20/24 06:13 Test 09/20/24 06:13 Range/Units Serum Glucose 106 74-106 mg/dL Microbiology Date/Time Source Procedure Growth Status 09/19/24 10:45 Voided Urine Urine Culture - Preliminary Resulted 09/19/24 10:15 Blood Blood Culture - Preliminary NO GROWTH AFTER 24 HOURS OF INCUBATION. Resulted Labs and/or images reviewed: Labs reviewed by me, Image(s) reviewed by me Problem List/Assessment/Plan Problem List/Assessment/Plan Hypertensive urgency--> improving --> Losartan 50 mg DAILY --> Carvedilol: 12.5mg daily BID --> monitor BP over night. if no improvement, will add Nifedipine --> Hydralazine 10mg prn if SBP is >150 NSTEMI type II likely secondary to elevated blood pressure --> troponin: 205--> 180--> 187 --> Cardiology on board Atypical pneumonia --> Fever:temp: 100.5, 100--> 98.0 --> Continue antibiotic --> Methylprednisolone add --> Breathing treatment Q4HR ( Albuterol and ipratropium) --> Blood culture negative Headache--> improved -->CT head: No acute intracranial process, Nonspecific 2.2 by 1.4 cm hypoechoic nodular structure in the right nasal cavity. Direct visualization is recommended. --> Tylenol: if no improvement --> Ibuprofen ( Consider this if not responding to Tylenol) --> Toradol: 15 mg once. --> Continue to monitor Prediabetes --> Hgb A1c: 6.4 --> Encourage lifestyle modification Hypertrophic cardiomyopathy --> Monitor --> Continue beta donato Goals of care discussed for 20 minutes; full code Case and plan discussed with Plan discussed with: Patient, Other (Nurse) Addendum Addendum Addendum I was physically present for the karimi portions of the service provided to patient by THE RESIDENT. I have reviewed the documentation, discussed the case with resident and agree with the resident's documentation except as noted. Also the patient's clinical case was discussed with the patient's nurse. This medical document was created using an electronic medical record system with computerized dictation system. Although this document has been carefully reviewed, there might still be some phonetic and typographical errors. These areas are purely typographical due to imperfections of the software programs, and do not reflect any compromise in the patient's medical care. Late signature. Date of Service: Sep 20, 2024 Billing Provider: THONY BARBA MD Common Visit Codes: 41949-[id number] INP/OBS CARE(HIGH) Secondary Visit Codes: 76003-KZTLOXHL CARE PLAN 30 MINUTES (20 minutes) CARLOS VINES RESIDENT Sep 20, 2024 19:54 THONY BARBA MD Sep 22, 2024 14:34
[2024-09-20] MEDS: methylPREDNISolone SOD SUCC 40 MG/ML VL IV SCH (21:43)
[2024-09-21] VITALS (10 sets, daily range): BP systolic 125–160; BP diastolic 77–87; PULSE 60–90; RESP 16–19; TEMP 97.8–98.5; O2SAT 91–99
[2024-09-21] MEDS: LOSARTAN POTASSIUM 50 MG TAB PO SCH (08:56)
[2024-09-21] MEDS ORDERED: LOSA-534 PO (14:12)
[2024-09-21] MEDS ORDERED: ACET-1882 PO (14:12)
[2024-09-21] MEDS ORDERED: PANT40T PO (14:12)
[2024-09-21] MEDS ORDERED: DOCU-265 PO (14:12)
[2024-09-21] MEDS ORDERED: PRED20TA2 PO (14:12)
[2024-09-21] MEDS ORDERED: LEVO750T40 PO (14:12)
[2024-09-21] MEDS ORDERED: ATOR20TA50 PO (14:12)
[2024-09-21] MEDS ORDERED: CARV-216 PO (14:12)
--- NOTE | 2024-09-21 23:51 | DVHDSRES ---
Discharge Summary Date of Admission Resident Creating Document: CARLOS VINES RESIDENT Sep 18, 2024 at 01:11 Date of Discharge: Sep 21, 2024 Admitting Diagnosis Elevated blood pressure with generalized arthritic Labs/Diagnostic Data: Laboratory Results Test 09/20/24 15:34 09/20/24 06:13 09/19/24 11:45 09/19/24 10:45 D-Dimer, Quantitative 0.33 mg/L FEU (0.0-0.49) White Blood Count 3.0 10^3/uL (4.4-10.8) Red Blood Count 4.40 10^6/uL (4.0-5.20) Hemoglobin 12.7 g/dL (12.2-16.2) Hematocrit 37.8 % (36.0-46.0) Mean Corpuscular Volume 85.9 fL (80.0-100.0) Mean Corpuscular Hemoglobin 29.0 pg (28.0-32.0) Mean Corpuscular Hemoglobin Concent 33.7 g/dL (32.0-36.0) Red Cell Distribution Width 13.8 % (11.8-14.3) Platelet Count 159 10^3/uL (140-450) Mean Platelet Volume 8.9 fL (6.9-10.8) Neutrophils (%) (Auto) 34.0 % (37.0-80.0) Lymphocytes (%) (Auto) 47.3 % (10.0-50.0) Monocytes (%) (Auto) 17.6 % (0.0-12.0) Eosinophils (%) (Auto) 0.8 % (0.0-7.0) Basophils (%) (Auto) 0.3 % (0.0-2.0) Neutrophils # (Auto) 1.0 10 ^3/uL (1.6-8.6) Lymphocytes # (Auto) 1.4 10 ^3/uL (0.4-5.4) Monocytes # (Auto) 0.5 10 ^3/uL (0-1.3) Eosinophils # (Auto) 0 10 ^3/uL (0-0.8) Basophils # (Auto) 0 10 ^3/uL (0-0.2) Nucleated Red Blood Cells 0.3 % Sodium Level 138 mmol/L (136-145) Potassium Level 3.6 mmol/L (3.5-5.1) Chloride Level 103 mmol/L (98-107) Carbon Dioxide Level 26 mmol/L (20-31) Anion Gap 9 (5-15) Blood Urea Nitrogen 7 mg/dL (9-23) Creatinine 0.72 mg/dL (0.550-1.02) Glomerular Filtration Rate Calc 92 mL/min (>90) BUN/Creatinine Ratio 9.7 (10.0-20.0) Serum Glucose 106 mg/dL (74-106) Calcium Level 9.0 mg/dL (8.7-10.4) Influenza Type A Antigen Negative (Negative) Influenza Type B Antigen Negative (Negative) SARS-CoV-2 Antigen (Rapid) Negative (NEGATIVE) Urine Color Light-yellow (Yellow) Urine Clarity Clear (Clear) Urine pH 6.0 (5.0-9.0) Urine Specific [place] 1.025 (1.001-1.035) Urine Protein Trace (Negative) Urine Ketones Negative (Negative) Urine Blood Negative /uL (Negative) Urine Nitrite Negative (Negative) Urine Bilirubin Negative (Negative) Urine Urobilinogen Normal mg/dL (Negative) Urine Leukocyte Esterase Negative /uL (Negative) Urine RBC 1 /hpf (0 - 4) Urine WBC 2 /hpf (0 - 5) Urine Squamous Epithelial Cells Few /hpf (<5) Urine Bacteria None seen /hpf (None Seen) Urine Glucose 4+ mg/dL (Normal) Test 09/19/24 10:15 09/19/24 04:55 09/18/24 08:19 09/18/24 07:07 Lactic Acid Level 1.5 mmol/L (0.4-2.0) Total Bilirubin 0.6 mg/dL (0.2-1.0) Aspartate Amino Transferase (AST) 30 U/L (13-40) Alanine Aminotransferase (ALT) 17 U/L (7-40) Alkaline Phosphatase 110 U/L (46-116) Total Protein 6.5 g/dL (5.7-8.2) Albumin 4.2 g/dL (3.2-4.8) Thyroid Stimulating Hormone (TSH) 0.32 uIU/mL (0.55-4.78) Free Thyroxine (T4) Calculated 1.26 ng/dL (0.89-1.76) Free Triiodothyronine (T3) pg/mL 2.40 pg/mL (2.3-4.2) Urine Opiates Screen Neg (NEGATIVE) Urine Fentanyl Screen Neg (NEGATIVE) Urine Barbiturates Screen Neg (NEGATIVE) Urine Phencyclidine Screen Neg (NEGATIVE) Urine Amphetamines Screen Neg (NEGATIVE) Urine Benzodiazepines Screen Neg (NEGATIVE) Urine Cocaine Screen Neg (NEGATIVE) Urine Cannabinoids Screen Neg (NEGATIVE) Hemoglobin A1c 6.4 % A1C (<5.7) Magnesium Level 2.0 mg/dL (1.6-2.6) Troponin I High Sensitivity 187 ng/L (</=34) B-Type Natriuretic Peptide 454.66 pg/mL (0-100) Triglycerides Level 179 mg/dL (< 150) Cholesterol Level 285 mg/dL (< 200) LDL Cholesterol 202 mg/dL (< 100) HDL Cholesterol 51 mg/dL (40-59) Test 09/17/24 21:20 Prothrombin Time 11.6 sec (9.3-11.8) Prothrombin Time INR 1.10 (0.9-1.15) Activated Partial Thromboplast Time 28.9 SEC (24.5-34.5) Other Laboratory Tests 09/20/24 06:13 Brief Hx & Hospital Course: This 69 years old female with past medical history of hypertension, HCM, hyperlipidemia, carpal tunnel syndrome presented to the ED on with complaints of elevated blood pressure and generalized headache. Headache has been persistent for over 2 months and rated 10/10.There was no associated photophobia, but one incident of nausea. Patient mentioned that 6 weeks ago, she had couple episodes of epistaxis. On 09/17/24, patient had another episode of severe headache. When she measured her blood pressure, it read 186/96 whilst on her anti-hypertensive medications. She became very concerned and came to the ED for further management. In the ED, She was noted to have a low grade fever, elevated BP and a pounding headache. Troponins were elevated. EKG unremarkable. She was initially given hydralazine and Tylenol for the head. Echo showed mitral valve opacification. Patient was seen by the cardiology. Blood culture was negative which ruled out the possibility of infective endocarditis. The blood pressure was managed with Coreg and Losartan and titrated upwards. So far the BP has been stable. By day 3, she felt pulmonary congestion and there was wheezing noted on examination. Patient received ceftriaxone, Azithromycin and breathing treatment.Patient is better today. Examination today of discharge Genera;: no acute distress HEENT: Within normal limits Chest: S1-S2 audible, rate and rhythm regular, no murmur Lung: Clear lungs Abdomen: Nondistended, BS+, nontender, no organomegaly Musculoskeletal: no acute joint swelling or tenderness Lower extremity: No leg edema Neurological: cranial nerves intact, no acute dysarthria or dysphagia, No neurological abnormalities Psychiatry-- Normal mood and affect Skin- no acute rash or purpura Diagnoses managed on this admission Hypertensive urgency NSTEMI type II Headache Atypical pneumonia hypertrophic cardiomyopathy From medical standpoint, patient is stable for discharge. Will discharge patient home today with levofloxacin, coreg and losartan. Patient advised to attend the discharge clinic within a work. Also advised patient to follow up with her intern. Discussed with Dr. Barba Consults/Reason for consult Cardiology consultation for elevated troponin Operations or Procedures ORDERING PHYSICIAN: CLIFF OREILLY MD PROCEDURE(s): CXRP - CHEST PORTABLE REASON: htn ORDER NUMBER(s): [id number], ACCESSION NUMBER(s): [id number] CHEST RADIOGRAPH Indication: htn Technique: Single frontal view of the chest was obtained Comparison: None FINDINGS: Lines and Tubes: None Lungs: No focal consolidation. Pleura: No effusion. No pneumothorax. Cardiomediastinal contours: Cardiac size within normal limits. Bones: No acute osseous abnormality. IMPRESSION: 1. No acute cardiopulmonary disease. ATED BY: MYRNA ROUSE Jr., DO DICTATED DATE/TIME: 09/17/242202 ORDERING PHYSICIAN: CARLOS VINES PROCEDURE(s): HWOCT - HEAD WITHOUT CONTRAST REASON: persistent headache nausea and vomiting ORDER NUMBER(s): [id number], ACCESSION NUMBER(s): [id number] EXAM: CT HEAD WITHOUT CONTRAST HISTORY: persistent headache nausea and vomiting COMPARISON: None TECHNIQUE: Axial images of the head were obtained and reformatted in coronal and sagittal planes. All CT scans at this medical facility are performed using dose modulation techniques as appropriate to a performed exam including the following: Automated exposure control was utilized; adjustment of the MA and/or KV according to patient size; and use of iterative reconstruction technique. CT Dose: CTDI volume is 53.84 mGy. Dose-length product is 953.35 mGy*cm FINDINGS: There is no evidence of acute intracranial hemorrhage, mass, mass effect midline shift. There is no hydrocephalus or extra-axial fluid collection. [place]-white matter differentiation is maintained.. The visualized paranasal sinuses and mastoid air cells are clear. There is a nonspecific 2.2 x 1.4 Hypoechoic nodular structure seen in the right nasal cavity. The calvarium is intact. IMPRESSION: 1. No acute intracranial process. 2. Nonspecific 2.2 by 1.4 cm hypoechoic nodular structure in the right nasal cavity. Direct visualization is recommended. HS:Y ATED BY: DOMINIK QUINONES MD DICTATED DATE/TIME: 09/18/24 1150 PATIENT: KIERRA KWOKAACCT: [id number] UNIT: [id number] : 1955 LOC: [facility] ROOM / BED: [address] [place] [address] AGE / SEX: 69 / F ADM STATUS: ADM IN SERVICE 170 ORDERING PHYSICIAN: CHRISTOS PERDOMO RESIDENT PROCEDURE(s): CXR2 - CHEST TWO VIEWS ROUTINE REASON: sob ORDER NUMBER(s): [id number], ACCESSION NUMBER(s): [id number] EXAMINATION: PA and lateral chest radiographs CLINICAL HISTORY: sob COMPARISON: None FINDINGS: Lead wires overlie the thorax. Streaky opacities in the left lower lung field. Right lung is relatively clear. Aortic calcifications. The cardiomediastinal silhouette otherwise appears within normal limits given technique. No definite pleural effusion or pneumothorax. IMPRESSION: Atelectasis/scarring versus developing infiltrates in the left lower lung field. Please correlate for infection. ATED BY: AUGUST QUINONES MD DICTATED DATE/TIME: 09/19/24 181 Condition at Discharge: Stable Final Diagnosis/Problems List Hypertensive urgency Headaches atypical pnumonia Hypertrophic cardiomyopathy NSTEMI type II Discharge Disposition: Home Discharge Instruct/Medications Diet: Cardiac 2g Na,low cholest Activity: No Restrictions, As Tolerated Follow Up/Referral: To follow up at the discharge clinic/continuity clinic within 7 days Medications: Continue Losartan Continue carvedilol Discharge Statement: "Patient was advised to return to the ER or call 911 if any headaches, dizziness, shortness of breath, chest pain, abdominal pain, bleeding, fevers, or worsening of medical condition. Patient was counseled about treatment plan, medications, possible side effects, patientverbalized understanding. All questions were answered to the best of my ability. This discharge took greater then 30 minutes in planning, reviewing documentation, counseling the patient, and discussing with other team members." Addendum Addendum Addendum I was physically present for the karimi portions of the service provided to patient by THE RESIDENT. I have reviewed the documentation, discussed the case with resident and agree with the resident's documentation except as noted. Also the patient's clinical case was discussed with the patient's nurse. This medical document was created using an electronic medical record system with computerized dictation system. Although this document has been carefully reviewed, there might still be some phonetic and typographical errors. These areas are purely typographical due to imperfections of the software programs, and do not reflect any compromise in the patient's medical care. Late signature. Date of Service: Sep 21, 2024 Billing Provider: THONY BARBA MD Common Visit Codes: 98744-IRM/OBS DISCH DAY >30min CARLOS VINES Sep 21, 2024 23:51 THONY BARBA MD Sep 22, 2024 14:37
== END 2024-09-21 16:10 | disposition home or self-care (01) | DRG 280 ==
LOC: ER 18:24 → TELE 09-18 01:11 → TELE-WESTW 09-18 19:26
PROVIDERS: ADMIT Internal Medicine; ATTEND Anesthesiology
DX: I16.0 Hypertensive urgency (principal); J18.9 Pneumonia, unspecified organism; I21.A1 Myocardial infarction type 2; I42.1 Obstructive hypertrophic cardiomyopathy; Z20.822 Contact with and (suspected) exposure to COVID-19; B34.9 Viral infection, unspecified; E78.5 Hyperlipidemia, unspecified; F41.9 Anxiety disorder, unspecified; I08.1 Rheumatic disorders of both mitral and tricuspid valves; R73.03 Prediabetes; Z79.82 Long term (current) use of aspirin
CPT/HCPCS: 36415; 70450; 71045; 71046; 80048; 80053; 80061; 80307; 81001; 83036; 83605; 83735; 83880; 84439; 84443; 84481; 84484; 85025; 85379; 85610; 85730; 87040; 87086; 87426; 87804; 93005; 93306; 94640; 99291; G0378; J1885; J1956; J2405

== ENCOUNTER 2024-11-24 12:24 | Emergency (ER) | payer MEDICARE ==
[~2024-11-24] VITALS: Ht 154.9 cm; Wt 63.0 kg
[~2024-11-24 12:24] MED LIST changes: +ACET-1882 PO; +ATOR-47 PO; +ATOR20TA50 PO; +CARV-216 PO; -CLON0.1T PO; +DOCU-265 PO; -ESCI10TA PO; +LEVO750T40 PO; +LOSA-534 PO; -METO-289 PO; -OLME5TAB22 PO; +PANT40T PO; +PRED20TA2 PO; -TERB250T92 PO
[2024-11-24 13:54] VITALS: BP 151/80; PULSE 75; RESP 19; TEMP 98.7; O2SAT 96
--- NOTE | 2024-11-24 14:12 | ED.PDOC ---
History of Present Illness(SKN HPI Comments A 69 YEAR OLD FEMALE PRESENTS TO THE ED WITH COMPLAINT OF ALLERGIC REACTION. PATIENT STATES SHE WAS RECENTLY PRESCRIBED LIPITOR 3 DAYS AGO AND HAS TAKEN 3 DOSES OF THIS MEDICATION AND BEGAN TO EXPERIENCE A GENERALIZED RASH TODAY. PATIENT IS CONCERNED SHE MAY BE HAVING AN ALLERGIC REACTION TO THE LIPITOR SHE WAS PRESCRIBED. PATIENT DENIES FEVER, CHILLS, SHORTNESS OF BREATH, CHEST PAIN, ABDOMINAL PAIN, NAUSEA, VOMITING, HEADACHE, OR OTHER COMPLAINTS. NO OTHER SYMPTOMS OR MODIFYING FACTORS AT THIS TIME. PATIENT IS ALERT, ORIENTED X 4, AND HAS STEADY GAIT. Chief Complaint: Allergic Reaction Time Seen by MD: 12:35 Primary Care Provider: ? History of Present Illness: Nurses Notes, Medications, Allergies Allergies: Coded Allergies: Codeine (Verified Adverse Reaction, Mild, 09/18/24) Causes vomiting Home Meds Active Scripts Hydroxyzine Pamoate (Vistaril) 25 Mg Cap, 1 CAP PO TID, #30 CAP Prov:MONAE OJEDA 11/24/24 Methylprednisolone (Medrol Dosepak) 4 Mg Dillon, 4 MG PO UD, #21 TAB UAD Prov:MONAE OJEDA 11/24/24 Levofloxacin Hemihydrate (LEVOFLOXACIN) 750 Mg Tab, 750 MG PO DAILY for 5 Days, #5 TAB Prov:CARLOS VINES 09/21/24 Prednisone (Prednisone) 20 Mg Tab, 40 MG PO DAILY for 4 Days, #4 MG Prov:CARLOS VINES 09/21/24 Acetaminophen (Acetaminophen) 325 Mg Tab, 650 MG PO Q6HP PRN for 30 Days, #120 TAB Prov:CARLOS VINES 09/21/24 Atorvastatin Calcium (ATORVASTATIN CALCIUM) 20 Mg Tab, 40 MG PO HS for 30 Days, #30 TAB Prov:CARLOS VINES 09/21/24 Carvedilol (COREG) 12.5 Mg Tab, 12.5 MG PO Q12HR for 30 Days, #60 TAB Prov:CARLOS VINES 09/21/24 Docusate Sodium (Docusate Sodium) 100 Mg Cap, 100 MG PO BIDPRN PRN for 30 Days, #30 CAP Prov:CARLOS VINES 09/21/24 Losartan Potassium (Losartan Potassium) 50 Mg Tab, 50 MG PO DAILY for 30 Days, #30 TAB Prov:CARLOS VINES 09/21/24 Pantoprazole Sodium Sesquihydr (Pantoprazole Sodium) 40 Mg Tab, 40 MG PO DAILY@0600 for 30 Days, #30 TAB Prov:CARLOS VINES RESIDENT 09/21/24 Reported Medications Atorvastatin Calcium (ATORVASTATIN CALCIUM) 80 Mg Tab, 1 TAB PO DAILY, #30 TAB 5 Refills 09/18/24 Information Source: Patient Mode of Arrival: Ambulatory Severity: Moderate Timing: Days Duration: Since onset, Days Prehospital treatment: None Location: Generalized Mechanism: Medication Developed: Rash Occurence: Indoors Object: None Condition of Object: None Retained Foreign Body: No Wound Type: None Immunization Status of Animal: NA Tetanus: Unknown History of: None Associated Signs and Symptoms: Redness Past Medical History PAST MEDICAL HISTORY: High Lipids, HTN Surgical History: MATHEMATICAL STATISTICIAN History: Denies all MATHEMATICAL STATISTICIAN Hx Family History Family History: Reviewed,noncontributory to illness Social History Smoker: Non-Smoker Alcohol: Denies ETOH Use Drugs: Denies Drug Use Lives In: Home Constitutional: denies: chills, diaphoresis, fatigue, fever, malaise, sweats, weakness, others EENTM: denies: blurred vision, double vision, ear bleeding, ear discharge, ear drainage, ear pain, ear ringing, eye pain, eye redness, hearing loss, mouth pain, mouth swelling, nasal discharge, nose bleeding, nose congestion, nose pain, photophobia, tearing, throat pain, throat swelling, voice changes, others Respiratory: denies: cough, hemoptysis, orthopnea, SOB at rest, shortness of breath, SOB with excertion, stridor, wheezing, others Cardiovascular: denies: chest pain, dizzy spells, diaphoresis, Dyspnea on exertion, edema, irregular heart beat, left arm pain, lightheadedness, palpitations, PND, syncope, others Gastrointestinal: denies: abdomen distended, abdominal pain, blood streaked bowels, constipated, diarrhea, dysphagia, difficulty swallowing, hematemesis, melena, nausea, poor appetite, poor fluid intake, rectal bleeding, rectal pain, vomiting, others Genitourinary: denies: abnormal vagina bleeding, burning, dyspareunia, dysuria, flank pain, frequency, hematuria, incontinence, pain, , vagina dis charge, urgency, others Neurological: denies: dizziness, fainting, headache, left sided numbness, left sided weakness, numbness, paresthesia, pre-existing deficit, right sided numbness, right sided weakness, seizure, speech problems, tingling, tremors, weakness, others Musculoskeletal: denies: back pain, gout, joint pain, joint swelling, muscle pain, muscle stiffness, neck pain, others Integumetry: reports: rash; denies: bruises, change in color, change in hair/nails, dryness, laceration, lesions, lumps, wounds, others Allergic/Immunocompromised: denies: Difficulty Healing, Frequent Infections, Hives, Itching, others Hematologic/Lymphatic: denies: anemia, blood clots, easy bleeding, easy bruising, swollen glands, others Endocrine: denies: excessive hunger, excessive sweating, excessive thirst, excessive urination, flushing, intolerance to cold, intolerance to heat, unexplained weight gain, unexplained weight loss, others Psychiatric: denies: anxiety, bipolar disorder, depression, hopeless, panic disorder, schizophrenia, sleepless, suicidal, others All Other Systems: Reviewed and Negative Physical Exam General Appearance: No Apparent Distress, Normal HEENT: Normal ENT Inspection, PERRL/EOMI, Pharynx Normal, TMs Normal Neck: Full Range of Motion, Non-Tender, Normal, Normal Inspection Respiratory: Chest Non-Tender, Lungs Clear, No Accessory Muscle Use, No Respiratory Distress, Normal Breath Sounds Cardiovascular: No Edema, No JVD, No Murmur, No Gallop, Normal Peripheral Pulses, Regular Rate/Rhythm Breast Exam: Deferred Gastrointestinal: No Organomegaly, Non Tender, No Pulsatile Mass, Normal Bowel Sounds, Soft Genitalia: Deferred Pelvic: Deferred Rectal: Deferred Extremities: No calf tenderness, Normal capillary refill, Normal inspection, Normal range of motion, Non-tender, No pedal edema Musculoskeletal : Apperance: Normal Neurologic: Alert, 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 ), Warm Peripheral Pulses: 2+ carotid (R), 2+ carotid (L) Lymphatic: No Adenopathy Was a procedure done? Was a procedure done?: No Differential Diagnosis (INTG) Differential Diagnosis: N/A Differential Diagnosis: Atopic dermatitis, Contact Dermatitis, Scabies, Tinea, Urticaria, Other (ALLERGIC REACTION) Differential Diagnosis: N/A Abscess: N/A X-Ray, Labs, Meds, VS Vital Signs Date Time Temp Pulse Resp B/P (MAP) Pulse Ox O2 Delivery O2 Flow Rate FiO2 11/24/24 13:54 98.7 75 19 151/80 (103) 96 98.7 11/24/24 13:54 75 19 96 Room Air 11/24/24 12:51 98.7 75 18 151/80 (103) 96 Current Medications Medications (Trade) Dose Ordered Sig/Abdi Route Start Time Stop Time Status Last Admin Epinephrine HCl 0.3 mg ONCE ONCE SC 11/24/24 14:15 11/24/24 14:16 DC 11/24/24 14:28 Methylprednisolone Sodium Succinate (Solu Medrol) 125 mg ONCE ONCE IM 11/24/24 14:15 11/24/24 14:16 DC 11/24/24 14:27 X-Ray, Labs, Meds, VS Comment EXTERNAL MEDICAL RECORDS REVIEWED: [NONE] INDEPENDENT HISTORIANS: [NONE] SOCIAL DETERMINANTS OF HEALTH: [NONE] LABS ORDERED: NONE REVIEWED AND INTERPRETED RESULTS: NONE IMAGING ORDERED: NONE TREATMENTS ORDERED: EPINEPHRINE 0.3 MG IM, SOLU-MEDROL 125 MG IM PROCEDURES PERFORMED: NONE CRITICAL CARE TIME: NONE I HAVE DISCUSSED THE PATIENT WITH THE ATTENDING PHYSICIAN DR. BROWN AND HE AGREES WITH THE PATIENT'S PLAN OF CARE AND DISPOSITION. BASED ON HISTORY OF PRESENT ILLNESS, AND PHYSICAL EXAM, PATIENT WILL BE DISCHARGED HOME. DISCUSSED PLAN FOR DISCHARGE HOME WITH RX [MEDROL DOSEPAK AND VISTARIL 50 MG]. MEDICATION WARNINGS GIVEN. SHARED DECISION MAKING: PATIENT INSTRUCTED TO FOLLOW UP WITH PRIMARY CARE PROVIDER IN 1-2 DAYS FOR RE-EVALUATION OF SYMPTOMS. PATIENT VERBALIZES UNDERSTANDING TO RETURN TO ED FOR NEW OR WORSENING SYMPTOMS OR IF FOLLOW UP WITH PCP CANNOT BE OBTAINED. PATIENT FEELS COMFORTABLE GOING HOME AT THIS TIME. ALL QUESTIONS ADDRESSED AT TIME OF DISCHARGE. Time of 1ST Reevaluation: 14:41 Reevaluation 1ST: Improved Patient Education/Counseling: Diagnosis, Treatment, Need For Follow Up Family Education/Counseling: Diagnosis, Treatment, Need For Follow Up Medical Screening: No EMC Exist At This Time Departure 1 Departure Time of Disposition: 14:41 Impression: Primary Impression: Allergic reaction Qualified Codes: T78.40XA - Allergy, unspecified, initial encounter Disposition: HOME / SELF CARE / HOMELESS Condition: Stable Additional Instructions: FOLLOW-UP WITH PCP IN 1 TO 2 DAYS. TAKE MEDICATIONS PRESCRIBED. RETURN TO ED FOR ANY NEW OR WORSENING SYMPTOMS. e-Prescriptions Hydroxyzine Pamoate (Vistaril) 25 Mg Cap 1 CAP PO TID, #30 CAP Prov: MONAE OJEDA 11/24/24 Methylprednisolone (Medrol Dosepak) 4 Mg Dillon 4 MG PO UD, #21 TAB UAD Prov: MONAE OJEDA 11/24/24 Discharged With: Self Critical Care Note Critical Care Time?: No Stability Stability form required: No I personally scribed for MONAE OJEDA ([email or web address]) on 11/24/24 at 14:12. Electronically submitted by Bhupinder Johnson ([email or web address]). MONAE OJEDA Nov 24, 2024 14:12
[2024-11-24] MEDS ORDERED: HYDR25CA PO (14:15)
[2024-11-24] MEDS ORDERED: METH4PAK PO (14:15)
[2024-11-24] MEDS: methylPREDNISolone SOD SUCC 125 MG/2 ML VL IM ONE (14:27)
[2024-11-24] MEDS: EPINEPHrine HCL 1 MG/1 ML AMP SC ONE (14:28)
[2024-11-24] MEDS: ACETAMINOPHEN 500 MG TAB or CAP PO ONE (14:42)
== END 2024-11-24 15:02 | disposition home or self-care (01) ==
LOC: ER 12:24
DX: T78.49XA Other allergy, initial encounter (principal); E78.5 Hyperlipidemia, unspecified; I10 Essential (primary) hypertension; Z88.6 Allergy status to analgesic agent; Z79.899 Other long term (current) drug therapy; Z98.890 Other specified postprocedural states; X58.XXXA Exposure to other specified factors, initial encounter
CPT/HCPCS: 96372; 99284; J0171; J2919

== ENCOUNTER 2025-10-11 15:39 | Emergency (ER) | payer MEDICARE ==
[~2025-10-11] VITALS: Ht 154.9 cm; Wt 64.4 kg
[~2025-10-11 15:39] MED LIST changes: +HYDR25CA PO; +METH4PAK PO
--- NOTE | 2025-10-11 15:57 | ED.PDOC ---
DIRECTOR OF MEDICARE HPI Comments A 70 YEAR OLD FEMALE PRESENTS TO THE ED WITH COMPLAINT OF PAIN DURING URINATION THAT BEGAN ONE WEEK AGO. PATIENT REPORTS PAIN DURING URINATION, FEVER ONSET A FEW DAYS AGO, AND NAUSEA. PT HAS PMHX OF AN ENLARGED HEART, HTN, AND CHOLESTEROL. PATIENT DENIES CHILLS, SHORTNESS OF BREATH, CHEST PAIN, ABDOMINAL PAIN, HEADACHE, OR OTHER COMPLAINTS. NO OTHER SYMPTOMS OR MODIFYING FACTORS AT THIS TIME. PATIENT IS ALERT, ORIENTED X 4, AND HAS STEADY GAIT. Chief Complaint: Urinary Time Seen by MD: 15:54 Reviewed Notes: Nurses Notes, Medications, Allergies Allergies: Coded Allergies: Codeine (Verified Adverse Reaction, Mild, 09/18/24) Causes vomiting Home Meds Active Scripts Phenazopyridine HCl (Phenazopyridine Hydrochlo) 200 Mg Tab, 200 MG PO TID, #6 TAB Prov:MONAE OJEDA 10/11/25 Sulfamethoxazole W/Trimethopri (Bactrim Ds Tablet) 1 Tab Tb, 1 TAB PO BID for 7 Days, #14 TAB Prov:MONAE OJEDA 10/11/25 Hydroxyzine Pamoate (Vistaril) 25 Mg Cap, 1 CAP PO TID, #30 CAP Prov:MONAE OJEDA 11/24/24 Methylprednisolone (Medrol Dosepak) 4 Mg Dillon, 4 MG PO UD, #21 TAB UAD Prov:MONAE OJEDA 11/24/24 Levofloxacin Hemihydrate (LEVOFLOXACIN) 750 Mg Tab, 750 MG PO DAILY for 5 Days, #5 TAB Prov:CARLOS VINES 09/21/24 Prednisone (Prednisone) 20 Mg Tab, 40 MG PO DAILY for 4 Days, #4 MG Prov:CARLOS VINES 09/21/24 Acetaminophen (Acetaminophen) 325 Mg Tab, 650 MG PO Q6HP PRN for 30 Days, #120 TAB Prov:CARLOS VINES 09/21/24 Atorvastatin Calcium (ATORVASTATIN CALCIUM) 20 Mg Tab, 40 MG PO HS for 30 Days, #30 TAB Prov:CARLOS VINES 09/21/24 Carvedilol (COREG) 12.5 Mg Tab, 12.5 MG PO Q12HR for 30 Days, #60 TAB Prov:CARLOS VINES 09/21/24 Docusate Sodium (Docusate Sodium) 100 Mg Cap, 100 MG PO BIDPRN PRN for 30 Days, #30 CAP Prov:CARLOS VINES 09/21/24 Losartan Potassium (Losartan Potassium) 50 Mg Tab, 50 MG PO DAILY for 30 Days, #30 TAB Prov:CARLOS VINES RESIDENT 09/21/24 Pantoprazole Sodium Sesquihydr (Pantoprazole Sodium) 40 Mg Tab, 40 MG PO MARLEEN Y@0600 for 30 Days, #30 TAB Prov:CARLOS VINES RESIDENT 09/21/24 Reported Medications Atorvastatin Calcium (ATORVASTATIN CALCIUM) 80 Mg Tab, 1 TAB PO DAILY, #30 TAB 5 Refills 09/18/24 Information Source: Patient Mode of Arrival: Ambulatory Timing: Days Severity: Moderate Vaginal Discharge: None Last Consensual Cam[place]: None Control: None Symptoms of Possible : None Associated Signs and Symptoms: Dysuria, Frequency, Urgency Past Medical History PAST MEDICAL HISTORY: High Lipids, HTN 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 History: Denies all LEAD IOS 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 Hx Family History Family History: Reviewed,noncontributory to illness Social History Smoker: Non-Smoker Alcohol: Denies ETOH Use Drugs: Denies Drug Use Lives In: Home Constitutional: denies: chills, diaphoresis, fatigue, fever, malaise, sweats, weakness, others EENTM: denies: blurred vision, double vision, ear bleeding, ear discharge, ear drainage, ear pain, ear ringing, eye pain, eye redness, hearing loss, mouth pain, mouth swelling, nasal discharge, nose bleeding, nose congestion, nose pa in, photophobia, tearing, throat pain, throat swelling, voice changes, others Respiratory: denies: cough, hemoptysis, orthopnea, SOB at rest, shortness of breath, SOB with excertion, stridor, wheezing, others Cardiovascular: denies: chest pain, dizzy spells, diaphoresis, Dyspnea on exertion, edema, irregular heart beat, left arm pain, lightheadedness, palpitations, PND, syncope, others Gastrointestinal: reports: nausea; denies: abdomen distended, abdominal pain, blood streaked bowels, constipated, diarrhea, dysphagia, difficulty swallowing, hematemesis, melena, poor appetite, poor fluid intake, rectal bleeding, rectal pain, vomiting, others Genitourinary: reports: burning, dysuria, frequency; denies: abnormal vagina bleeding, dyspareunia, flank pain, hematuria, incontinence, pain, , vagina discharge, urgency, others Neurological: denies: dizziness, fainting, headache, left sided numbness, left sided weakness, numbness, paresthesia, pre-existing deficit, right sided numbness, right sided weakness, seizure, speech problems, tingling, tremors, weakness, others Musculoskeletal: denies: back pain, gout, joint pain, joint swelling, muscle pain, muscle stiffness, neck pain, others Integumetry: denies: bruises, change in color, change in hair/nails, dryness, laceration, lesions, lumps, rash, wounds, others Allergic/Immunocompromised: denies: Difficulty Healing, Frequent Infections, Hives, Itching, others Hematologic/Lymphatic: denies: anemia, blood clots, easy bleeding, easy bruising, swollen glands, others Endocrine: denies: excessive hunger, excessive sweating, excessive thirst, excessive urination, flushing, intolerance to cold, intolerance to heat, unexplained weight gain, unexplained weight loss, others Psychiatric: denies: anxiety, bipolar disorder, depression, hopeless, panic disorder, schizophrenia, sleepless, suicidal, others All Other Systems: Reviewed and Negative Physical Exam General Appearance: No Apparent Distress, Normal HEENT: Normal ENT Inspection, PERRL/EOMI, Pharynx Normal, TMs Normal Neck: Full Range of Motion, Non-Tender, Normal, Normal Inspection Respiratory: Chest Non-Tender, Lungs Clear, No Accessory Muscle Use, No Respiratory Distress, Normal Breath Sounds Cardiovascular: No Edema, No JVD, No Murmur, No Gallop, Normal Peripheral Pulses, Regular Rate/Rhythm Breast Exam: Deferred Gastrointestinal: No Organomegaly, Non Tender, No Pulsatile Mass, Normal Bowel Sounds, Soft Genitalia: Deferred Pelvic: Deferred Rectal: Deferred Extremities: No calf tenderness, Normal capillary refill, Normal inspection, Normal range of motion, Non-tender, No pedal edema Musculoskeletal : Apperance: Normal Neurologic: Alert, textile 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 Was a procedure done?: No Differential Diagnosis (LEAD IOS DEVELOPER) Vaginal Bleeding: UTI Vaginal Discharge: UTI, Vaginitis - Bacterial X-Ray, Labs, Meds, VS Vital Signs Date Time Temp Pulse Resp B/P (MAP) Pulse Ox O2 Delivery O2 Flow Rate FiO2 10/11/25 17:18 67 18 158/67 (97) 100 10/11/25 17:15 67 158/89 10/11/25 16:08 190/94 10/11/25 16:08 73 190/94 10/11/25 15:59 98.9 73 18 190/94 (126) 99 98.9 10/11/25 15:59 73 18 99 Room Air 10/11/25 15:42 98.6 77 18 187/102 96 98.6 Lab Test 10/11/25 16:03 10/11/25 15:52 Range/Units White Blood Count 6.4 4.4-10.8 10^3/uL Red Blood Count 4.87 4.0-5.20 10^6/uL Hemoglobin 14.1 12.2-16.2 g/dL Hematocrit 41.4 36.0-46.0 % Mean Corpuscular Volume 85.2 80.0-100.0 fL Mean Corpuscular Hemoglobin 29.0 28.0-32.0 pg Mean Corpuscular Hemoglobin Concent 34.1 32.0-36.0 g/dL Red Cell Distribution Width 13.8 11.8-14.3 % Platelet Count 255 140-450 10^3/uL Mean Platelet Volume 8.6 6.9-10.8 fL Neutrophils (%) (Auto) 54.1 37.0-80.0 % Lymphocytes (%) (Auto) 35.0 10.0-50.0 % Monocytes (%) (Auto) 6.8 0.0-12.0 % Eosinophils (%) (Auto) 3.1 0.0-7.0 % Basophils (%) (Auto) 1.0 0.0-2.0 % Neutrophils # (Auto) 3.4 1.6-8.6 10 ^3/uL Lymphocytes # (Auto) 2.2 0.4-5.4 10 ^3/uL Monocytes # (Auto) 0.4 0-1.3 10 ^3/uL Eosinophils # (Auto) 0.2 0-0.8 10 ^3/uL Basophils # (Auto) 0.1 0-0.2 10 ^3/uL Nucleated Red Blood Cells 0.1 % Sodium Level 139 136-145 mmol/L Potassium Level 4.0 3.5-5.1 mmol/L Chloride Level 103 98-107 mmol/L Carbon Dioxide Level 26 20-31 mmol/L Anion Gap 10 5-15 Blood Urea Nitrogen 14 9-23 mg/dL Creatinine 0.70 0.550-1.02 mg/dL Glomerular Filtration Rate Calc 94 >90 mL/min BUN/Creatinine Ratio 20.0 10.0-20.0 Serum Glucose 124 H 74-106 mg/dL Calcium Level 9.5 8.7-10.4 mg/dL Urine Color Light-yellow Yellow Urine Clarity Clear Clear Urine pH 6.0 5.0-9.0 Urine Specific [place] 1.012 1.001-1.035 Urine Protein Negative Negative Urine Ketones Negative Negative Urine Blood Negative Negative /uL Urine Nitrite Negative Negative Urine Bilirubin Negative Negative Urine Urobilinogen Normal Negative mg/dL Urine Leukocyte Esterase 2+ Negative /uL Urine RBC None seen 0 - 4 /hpf Urine Microscopic WBC 10 H 0-5 /HPF Urine Squamous Epithelial Cells Few <5 /hpf Urine Bacteria None seen None Seen /hpf Urine Glucose Normal Normal mg/dL Current Medications Medications (Trade) Dose Ordered Sig/Abdi Route Start Time Stop Time Status Last Admin Metoprolol Tartrate (Lopressor Tablet) 25 mg ONCE ONCE PO 10/11/25 16:15 10/11/25 16:16 DC 10/11/25 16:08 Hydrochlorothiazide (hydroCHLOROthiazide TABLET) 25 mg ONCE ONCE PO 10/11/25 16:15 10/11/25 16:16 DC 10/11/25 16:08 X-Ray, Labs, Meds, VS Comment COURSE: EXTERNAL MEDICAL RECORDS REVIEWED: [NONE] INDEPENDENT HISTORIANS: [NONE] SOCIAL DETERMINANTS OF HEALTH: [NONE] LABS ORDERED: URINALYSIS, BMP, AND CBC REVIEWED AND INTERPRETED RESULTS: NONE IMAGING ORDERED: NONE TREATMENTS ORDERED: ROCEPHIN 1GM IM AND PYRIDIUM 200MG PO HYDROCHLORTHIASIDE 25MG AND METOPROLOL 25MG]. PROCEDURES PERFORMED: NONE CRITICAL CARE TIME: NONE I HAVE DISCUSSED THE PATIENT WITH THE ATTENDING PHYSICIAN DR. JON AND HE AGREES WITH THE PATIENT'S PLAN OF CARE AND DISPOSITION. BASED ON HISTORY OF PRESENT ILLNESS, AND PHYSICAL EXAM, PATIENT WILL BE DISCHARGED HOME. DISCUSSED PLAN FOR DISCHARGE HOME WITH RX [SEPTRA DS AND PYRIDIUM]. MEDICATION WARNINGS GIVEN. SHARED DECISION MAKING: DISCUSSED WITH PATIENT THAT THEIR WORKUP WAS NORMAL. PATIENT INSTRUCTED TO FOLLOW UP WITH PRIMARY CARE PROVIDER IN 1-2 DAYS FOR RE- EVALUATION OF SYMPTOMS. PATIENT VERBALIZES UNDERSTANDING TO RETURN TO ED FOR NEW OR WORSENING SYMPTOMS OR IF FOLLOW UP WITH PCP CANNOT BE OBTAINED. PATIENT FEELS COMFORTABLE GOING HOME AT THIS TIME. ALL QUESTIONS ADDRESSED AT TIME OF DISCHARGE. Time of 1ST Reevaluation: 17:40 Reevaluation 1ST: Improved Patient Education/Counseling: Diagnosis, Treatment, Need For Follow Up Family Education/Counseling: Diagnosis, Treatment, Need For Follow Up, No Family Present Medical Screening: No EMC Exist At This Time Departure 1 Departure Time of Disposition: 17:40 Impression: Primary Impression: Urinary tract infection Qualified Codes: N30.00 - Acute cystitis without hematuria Additional Impressions: HTN (hypertension) Qualified Codes: I10 - Essential (primary) hypertension Noncompliance with medications Disposition: 01 HOME / SELF CARE / HOMELESS Condition: Stable Additional Instructions: F/U PCP IN 2 DAYS RECHECK. IF CONDIGN BECOME WORSE, RETURN TO ED [facility]. e-Prescriptions Phenazopyridine HCl (Phenazopyridine Hydrochlo) 200 Mg Tab 200 MG PO TID, #6 TAB Prov: MONAE OJEDA 10/11/25 Sulfamethoxazole W/Trimethopri (Bactrim Ds Tablet) 1 Tab Tb 1 TAB PO BID for 7 Days, #14 TAB Prov: MONAE OJEDA 10/11/25 Discharged With: Self Critical Care Note Critical Care Time?: No Stability Stability form required: No Heart Score Heart Score: Heart Score Response (Comments) Value History N/A 0 EKG N/A 0 Age N/A 0 Risk Factors N/A 0 Troponin N/A 0 Total 0 I personally scribed for MONAE OJEDA ([email or web address]) on 10/11/25 at 15:57. Electronically submitted by Nilda Miller [email or web address]). I personally scribed for MONAE OJEDA ([email or web address]) on 10/11/25 at 15:59. Electro nically submitted by Nilda Miller ([email or web address]). I personally scribed for MONAE OJEDA ([email or web address]) on 10/11/25 at 17:16. Ariana ctronically submitted by Nilda Miller ([email or web address]). MONAE OJEDA Oct 11, 2025 15:57
[2025-10-11 15:59] VITALS: TEMP 98.9
[2025-10-11] MEDS: METOPROLOL TARTRATE 25 MG TAB PO ONE (16:08)
[2025-10-11] MEDS: hydroCHLOROthiazide 25 MG TAB PO ONE (16:08)
[2025-10-11 16:29] LABS: Hematocrit 41.4 % (36.0-46.0); Hemoglobin 14.1 g/dL (12.2-16.2); Mean Corpuscular Hemoglobin 29.0 pg (28.0-32.0); Mean Corpuscular Volume 85.2 fL (80.0-100.0); Nucleated Red Blood Cells % 0.1 %
[2025-10-11 16:33] LABS: Chloride 103 mmol/L (98-107); Potassium 4.0 mmol/L (3.5-5.1); Sodium 139 mmol/L (136-145)
[2025-10-11 16:34] LABS: Anion Gap 10 (5-15); Calcium 9.5 mg/dL (8.7-10.4); Carbon Dioxide 26 mmol/L (20-31)
[2025-10-11 16:39] LABS: BUN/Creatinine Ratio 20.0 (10.0-20.0); Blood Urea Nitrogen 14 mg/dL (9-23)
[2025-10-11 16:47] LABS: Glucose 124 mg/dL (74-106)
[2025-10-11 17:04] LABS: Urine Protein, UAD Negative (Negative)
[2025-10-11 17:18] VITALS: BP 158/67; PULSE 67; RESP 18; O2SAT 100
[2025-10-11] MEDS ORDERED: PHEN-922 PO (17:19)
[2025-10-11] MEDS ORDERED: BACDST PO (17:19)
[2025-10-11] MEDS: cefTRIAXone SOD 1,000 MG VL IM ONE (17:22)
[2025-10-11] MEDS: PHENAZOPYRIDINE HCL 100 MG TAB PO ONE (17:23)
== END 2025-10-11 17:39 | disposition home or self-care (01) ==
LOC: ER 15:39
DX: N39.0 Urinary tract infection, site not specified (principal); I10 Essential (primary) hypertension; Z91.148 Patient's other noncompliance with medication regimen for other reason; Z88.5 Allergy status to narcotic agent; Z79.899 Other long term (current) drug therapy
CPT/HCPCS: 36415; 80048; 81001; 85025; 96372; 99284; J0696